=== PATIENT | female | born 1935 | race Caucasian/White ===

== ENCOUNTER 2017-05-31 13:21 | Inpatient (IN) | payer OTHER, MEDICARE ==
--- NOTE | 2017-05-31 13:43 | PDOC ---
History of Present Illness - General History Source: Patient Exam Limitations: No Limitations - History of Present Illness Initial Comments: 05/31/17 15:28 The patient is a 82 year old female, with a significant past medical history of CAD, HTN, HLD who presents to the emergency department with decreased heart rate (32 bpm) from PCP office. Patient states she visited her PCP due to increased generalized weakness and lightheadedness for the past few days. Patient visited her PCPs office due to these concerns and was sent in due to bradycardia after EKG. Upon evaluation, patient still ranging from 30-35 bpm. Patient also notes unusual dyspnea on exertion however denies chest pain. Patient denies any recent dose changes with her medications. Patient denies any recent travel or sick contacts. She denies headache or dizziness. She denies fever, chills, abdominal pain, nausea, vomit, diarrhea or constipation. She denies dysuria, frequency, urgency or hematuria. Allergies: Penicillins Past surgical history: Social history: None PCP: Dr. Sara Alonso <June Smith - Last Filed: 05/31/17 16:15> <Abelino León - Last Filed: 06/01/17 07:34> - General Chief Complaint: Irregular Heart Beat Stated Complaint: SLOW HEART RATE Time Seen by Provider: 05/31/17 13:37 Past History <June Smith - Last Filed: 05/31/17 16:15> - Past Medical History HTN: Yes Hypercholesterolemia: Yes - Psycho/Social/Smoking Cessation Hx Suicidal Ideation: No Smoking History: Never smoked <Abelino León - Last Filed: 06/01/17 07:34> - Past Medical History Allergies/Adverse Reactions: Allergies Allergy/AdvReac Type Severity Reaction Status Date / Time Penicillins Allergy Severe Hives Verified 05/31/17 17:10 Home Medications: Ambulatory Orders Aspirin [Ecotrin] 81 mg PO DAILY 05/31/17 Losartan Potassium 50 mg PO DAILY 05/31/17 Metoprolol Succinate [Toprol Xl -] 25 mg PO HS 05/31/17 Omeprazole 20 mg PO DAILY 05/31/17 Review of Systems - Review of Systems Able to Perform ROS?: Yes Comments:: 05/31/17 15:28 CONSTITUTIONAL: + Generalized Weakness, No reported: Fever, Chills, Diaphoresis, Malaise, Loss of Appetite HEENT: No reported: Rhinorrhea, Nasal Congestion, Throat Pain, Throat Swelling, Difficulty Swallowing, Mouth Swelling, Ear Pain, Eye Pain, Visual Changes CARDIOVASCULAR: No reported: Chest Pain, Syncope, Palpitations, Irregular Heart Rate, Lightheadedness, Peripheral Edema RESPIRATORY: No reported: Cough, Shortness of Breath, SOB with Exertion, Orthopnea, Wheezing , Stridor, Hemoptysis GASTROINTESTINAL: No reported: Abdominal pain, Abdominal Distension, Nausea, Vomiting, Diarrhea, Constipation, Melena, Hematochezia GENITOURINARY: No reported: Dysuria, Frequency, Urgency, Hesitancy, Flank Pain, Genital Pain MUSCULOSKELETAL: No reported: Myalgia, Arthralgia, Joint Swelling, Back pain, Neck Pain SKIN: No reported: Rash, Itching, Pallor HEMATOLOGIC/IMMUNOLOGIC: No reported: Easy Bleeding, Easy Bruising, Lymphadenopathy, Frequent infections ENDOCRINE: No reported: Unexplained Weight Gain, Unexplained Weight Loss, Heat Intolerance , Cold Intolerance NEUROLOGIC: No reported: Headache, Focal Weakness, Paresthesias, Vertigo, Lightheadedness, Unsteady Gait, Seizure, Mental Status Changes, Incontinence PSYCHIATRIC: No reported: Anxiety, Depression <June Smith - Last Filed: 05/31/17 16:15> *Physical Exam - Vital Signs Last Vital Signs Temp Pulse Resp BP Pulse Ox 98.1 F 35 L 20 184/61 99 05/31/17 13:35 05/31/17 13:35 05/31/17 13:35 05/31/17 13:35 05/31/17 13:35 - Physical Exam Comments: 05/31/17 15:28 GENERAL: The patient is awake, alert, and fully oriented, Nontoxic - in no acute distress. HEAD: Normocephalic, atraumatic. EYES: extraocular movements intact, sclera anicteric, conjunctiva clear. ENT: Normal voice, Moist mucous membranes. NECK: Normal range of motion, No JVD LUNGS: Breath sounds equal, clear to auscultation bilaterally. No wheezes, no rhonchi, no rales. HEART: + Bradycardia. Regular rhythm, normal S1 and S2 without murmur, rub or gallop. ABDOMEN: Soft, nontender, normoactive bowel sounds. No guarding, no rebound. No masses. No CVA tenderness EXTREMITIES: Normal range of motion, +LE edema w/o calf tendreness NEUROLOGICAL: No facial asymmetry, Normal speech, normal gait. PSYCH: Normal mood, normal affect. SKIN: Warm, Dry, normal turgor. <June Smith - Last Filed: 05/31/17 16:15> - Vital Signs Last Vital Signs Temp Pulse Resp BP Pulse Ox 98.1 F 35 L 20 184/61 99 05/31/17 13:35 05/31/17 13:35 05/31/17 13:35 05/31/17 13:35 05/31/17 13:35 <Abelino León - Last Filed: 06/01/17 07:34> Heart Score/ECG Review - ECG Impressions Comment:: 05/31/17 14:46 Twelve-lead EKG was performed and reviewed by me. rate of 36 second degree AV block mobitz type II <Abelino León - Last Filed: 06/01/17 07:34> ED Treatment Course - LABORATORY CBC & Chemistry Diagram: 05/31/17 14:02 05/31/17 14:02 - ADDITIONAL ORDERS Additional order review: Laboratory Results 05/31/17 05/31/17 14:02 14:02 INR 1.09 Sodium 140 Potassium 4.8 Chloride 108 H Carbon Dioxide 27 Anion Gap 5 L BUN 21 H Creatinine 1.0 Creat Clearance w eGFR 52.82 Random Glucose 83 Calcium 8.6 Magnesium 2.3 Total Bilirubin 0.3 AST 37 ALT 58 Alkaline Phosphatase 82 Creatine Kinase 74 Troponin I < 0.02 Total Protein 6.9 Albumin 3.6 TSH 1.53 05/31/17 14:02 RBC 4.03 MCV 91.8 MCHC 33.2 RDW 14.5 MPV 9.2 Neutrophils % 60.6 Lymphocytes % 26.6 Monocytes % 9.7 Eosinophils % 2.2 Basophils % 0.9 <June Smith - Last Filed: 05/31/17 16:15> - LABORATORY CBC & Chemistry Diagram: 05/31/17 14:02 05/31/17 14:02 <Abelino León - Last Filed: 06/01/17 07:34> Medical Decision Making - Medical Decision Making 05/31/17 15:26 Dr. Geno Millan paged via phone answering service. Awaiting call back. 05/31/17 15:[address] Leyva overhead Patient's case was discussed. 05/31/17 15:30 Dr. Gonzalez responded and the patient's case was discussed. <June Smith - Last Filed: 05/31/17 16:15> - Medical Decision Making 05/31/17 14:18 82y F hx of htn, hl, sent by PMD for evaluation of bradycardia. pt complaing of weakness w/o any other complaints no recent dosage changes or new meds pt appears well in no distress vitasl noted for extreme bradycardia, but BP is hypertensive pt on pacer pads and monitor atropine bedside will ck cbc, trops, lytes will dw PMD and cardiology A portion of this note was documented by scribe services under my direction. I have reviewed the details of the note, within reason, and agree with the documentation with the following case summary and management plan written by me CRITICAL CARE DOCUMENTATION: I spent ~35 minutes of Critical Care time, excluding separately billable procedures, involving high complexity decision making to assess, manipulate and support vital system function(s) to treat single or multiple vital organ system failure and/or to prevent further life threatening deterioration of the patient' s condition. 05/31/17 15:25 labs reviewed unremarakble will dw dr. zachariah millan and dr. goddard regarding admission for further mangement 05/31/17 15:[address] goddard requests holding toprol tele obervation for monitoring case dw. dr. alonso, requests admission under hospitalist service. Case discussed in detail with admitting physician including history, physical exam and ancillary studies. Admitting physician has assumed care for the patient, will follow all pending diagnostics and will complete the evaluation and treatment. <Abelino León - Last Filed: 06/01/17 07:34> *DC/Admit/Observation/Transfer - Attestations Scribe Attestion: 05/31/17 15:28 Documentation prepared by June Smith, acting as manager medical writing for Abelino León MD <June Smith - Last Filed: 05/31/17 16:15> - Discharge Dispostion Admit: Yes <Abelino León - Last Filed: 06/01/17 07:34> Diagnosis at time of Disposition: AV block, Mobitz 2 - Discharge Dispostion Condition at time of disposition: Stable - Referrals
[2017-05-31] MEDS ORDERED: ATROPINE SO4 0.4 MG/1 ML VIAL IVPUSH ONE (13:47)
[2017-05-31 14:14] LABS: BASOPHIL 0.9 % (0-2.0); EOSINOPHIL 2.2 % (0-4.5); MCH 30.5 pg (25.7-33.7); MCHC 33.2 g/dl (32.0-36.0); MEAN CELL VOLUME 91.8 fl (80-96); MEAN PLT VOLUME 9.2 fl (7.5-11.1); NEUTROPHILS 60.6 % (42.8-82.8); PLATELET COUNT 209 K/MM3 (134-434); RDW 14.5 % (11.6-15.6); WHITE BLOOD COUNT 10.5 K/mm3 (4.0-10.0)
[2017-05-31] MEDS ORDERED: ATROPINE SULFATE 1 MG/10 ML DISP.SYRIN ONE (14:15)
[2017-05-31 14:51] LABS: INR 1.09 (0.82-1.09)
[2017-05-31 14:56] LABS: ALBUMIN 3.6 g/dl (3.4-5.0); ANION GAP 5 (8-16); BILIRUBIN,TOTAL 0.3 mg/dL (0.2-1.0); CALCIUM 8.6 mg/dL (8.5-10.1); CO2 27 mmol/L (21-32); CPK 74 IU/L (26-192); GLUCOSE,RANDOM 83 mg/dL (74-106); MAGNESIUM 2.3 mg/dL (1.8-2.4); SGOT/AST 37 U/L (15-37); SGPT/ALT 58 U/L (12-78); TOT PROT 6.9 g/dl (6.4-8.2)
[2017-05-31 15:04] LABS: ALK PHOS 82 U/L (45-117); THYROID STIMULATING HORMONE 1.53 uIU/ml (0.358-3.74); TROPONIN I < 0.02 ng/ml (0.00-0.05)
--- NOTE | 2017-05-31 15:48 | CON.CARD ---
Consult Consult Specialty:: Cardiology Referred by:: Sherita Gonzalez MD Reason for Consultation:: Symptomatic bradycardia - History of Present Illness Chief Complaint: Weakness, fatigue, dyspnea on exertion History of Present Illness: The patient is a 82 year old female, with a significant past medical history of CAD, HTN, HLD who presents to the emergency department with symptomatic bradycarda (32 bpm) from PCP office. Patient states she visited her PCP for increased generalized weakness, fatigue, exercise intolerance and lightheadedness for the past few days. Patient also notes dyspnea on exertion; however, denies chest pain, true syncope, palpitations, orthopnea, PND or LE edema. Patient denies any recent dose changes with her medications. Allergies: Penicillins Past surgical history: Social history: None PCP: Dr. Sara Alonso - History Source History Provided By: Patient Limitations to Obtaining History: No Limitations - Smoking History Smoking history: Never smoked Home Medications - Allergies Allergies/Adverse Reactions: Allergies Allergy/AdvReac Type Severity Reaction Status Date / Time Penicillins Allergy Severe Hives Verified 05/31/17 17:10 - Home Medications Home Medications: Ambulatory Orders Aspirin [Ecotrin] 81 mg PO DAILY 05/31/17 Losartan Potassium 50 mg PO DAILY 05/31/17 Metoprolol Succinate [Toprol Xl -] 25 mg PO HS 05/31/17 Omeprazole 20 mg PO DAILY 05/31/17 Review of Systems - Review of Systems Constitutional: reports: Weakness Neurological: reports: Dizziness Vital Signs: Vital Signs Temperature 98.1 F 05/31/17 13:35 Pulse Rate 36 L 05/31/17 15:15 Respiratory Rate 20 05/31/17 15:15 Blood Pressure 130/85 05/31/17 15:15 O2 Sat by Pulse Oximetry (%) 99 05/31/17 15:15 Constitutional: Yes: No Distress, Calm Neck: Yes: Supple Respiratory: Yes: Regular, CTA Bilaterally Gastrointestinal: Yes: Normal Bowel Sounds, Soft Cardiovascular: Yes: Bradycardia JVD: No Carotid Bruit: No Heart Sounds: Yes: S1, S2 Murmur: Yes: Systolic Murmur, Grade 1 Edema: No - Other Data Labs, Other Data: CBC, BMP 05/31/17 14:02 05/31/17 14:02 INR, PTT INR 1.09 (0.82-1.09) 05/31/17 14:02 Troponin, BNP 05/31/17 14:02 Troponin I < 0.02 Troponin, BNP 05/31/17 14:02 Troponin I < 0.02 Advanced 2nd deg AVB Ejection Fraction %: LVEF > or = 40 % Imaging - Results Chest X-ray: Report Reviewed (NAD) Problem List - Problems (1) Symptomatic bradycardia Code(s): R00.1 - BRADYCARDIA, UNSPECIFIED (2) Hyperlipidemia Code(s): E78.5 - HYPERLIPIDEMIA, UNSPECIFIED Qualifiers: Hyperlipidemia type: pure hypercholesterolemia Qualified Code(s): E78.00 - Pure hypercholesterolemia, unspecified; E78.0 - Pure hypercholesterolemia (3) Hypertensive cardiomyopathy Code(s): I11.9 - HYPERTENSIVE HEART DISEASE WITHOUT HEART FAILURE I43 - CARDIOMYOPATHY IN DISEASES CLASSIFIED ELSEWHERE Qualifiers: Heart failure presence: without heart failure Qualified Code(s): I11.9 - Hypertensive heart disease without heart failure; I43 - Cardiomyopathy in diseases classified elsewhere (4) Atherosclerotic heart disease Code(s): I25.10 - ATHSCL HEART DISEASE OF [place] CORONARY ARTERY W/O ANG PCTRS Qualifiers: Coronary Disease-Associated Artery/Lesion type: nikolai artery [place] vs. transplanted heart: nikolai heart Associated angina: without angina Qualified Code(s): I25.10 - Atherosclerotic heart disease of [place] coronary artery without angina pectoris (5) AV block, Mobitz 2 Code(s): I44.1 - ATRIOVENTRICULAR BLOCK, SECOND DEGREE Assessment/Plan Persantine Myoview: 04/01/2015 No ischemia, LVEF 81% Echocardiogram: 03/29/2015 Normal LV size and fxn, MAC, mild MR, TR, AR and NE 1. Symptomatic bradycardia referable to progressive sick sinus syndrome on metoprolol 2. ASHD w/o ischemic on recent MPI 3. HTN/HCVD 4. Hyperlipidemia 5. Alternating RBBB 6. History of lumbar radiculopathy P:1. Overnight telemetry observation off metoprolol to excluded significant pauses 2. Continue ASA 81 qd, losartan 50 qd, Lipitor 10 qhs, add Norvasc 2.5 qd with uptitration as tolerated 3. Further recommendations to follow pending clinical reassessment 4. Thank you for consultative opportunity
[2017-05-31] MEDS ORDERED: amLODIPine BESYLATE 5 MG TABLET (FP) ONE (17:14)
[2017-05-31] MEDS ORDERED: LOSARTAN POTASSIUM 25 MG TABLET ONE (17:14)
[2017-05-31] MEDS: LOSARTAN POTASSIUM 50 MG TABLET (FP) PO SCH (17:26)
[2017-05-31] MEDS: amLODIPine BESYLATE 2.5 MG TABLET (FP) PO SCH (17:26)
--- NOTE | 2017-05-31 17:44 | EKG ---
Test Reason : Blood Pressure : / mmHG Vent. Rate : 036 BPM Atrial Rate : 064 BPM P-R Int : 182 ms QRS Dur : 096 ms QT Int : 492 ms P-R-T Axes : 012 -08 037 degrees QTc Int : 380 ms SINUS RHYTHM WITH 2ND DEGREE A-V BLOCK (MOBITZ II) 2:1 AV BLOCK CANNOT RULE OUT SEPTAL INFARCT , AGE UNDETERMINED ABNORMAL ECG WHEN COMPARED WITH ECG OF 04-JUL-2009 17:15, SINUS RHYTHM IS NOW WITH 2ND DEGREE A-V BLOCK (MOBITZ II) VENT. RATE HAS DECREASED BY 29 BPM Confirmed by MUNA LEAL MD ([id number]) on 05/31/2017 5:44:35 PM Referred By: Confirmed By:MUNA LEAL MD
--- NOTE | 2017-05-31 17:47 | HP ---
CHIEF COMPLAINT: increased weakness, fatigue, exercise intolerance and lightheadedness. Sent by PCP Dr. Gavin Arango for symptomatic bradycardia after office EKG revealed pt heart rate in the 30s. PCP: Dr. Gavin Arango HISTORY OF PRESENT ILLNESS: Patient is an 82 year old female with a significant past medical history of CAD , hypertension and hyperlipidemia. She presented to the ED today from her PCP' s office with symptomatic bradycardia (heart rate 32 bpm). Patient went to see her PCP for worsening generalized weakness, fatigue, exercise intolerance and lightheadedness for approximately 2-3 days. Patient also reported dyspnea on exertion. She denies chest pain, syncope, heart palpitations or any other discomfort. She denies fever or chills. ER course was notable for: (1) EKG SR with second degree AV block 2:1 block, cannot rule out septal infarct , heart rate 33 (2) Chest Xray no acute intrathoracic abnormality seen (3) Troponins negative x 1 Recent Travel: PAST MEDICAL HISTORY: PAST SURGICAL HISTORY: Social History: Smoking: denies Alcohol: denies Drugs: denies Family History: Allergies Penicillins Allergy (Severe, Verified 05/31/17 17:10) Hives HOME MEDICATIONS: Home Medications Medication Instructions Recorded Aspirin [Ecotrin] 81 mg PO DAILY 05/31/17 Losartan Potassium 50 mg PO DAILY 05/31/17 Metoprolol Succinate [Toprol Xl -] 25 mg PO HS 05/31/17 Omeprazole 20 mg PO DAILY 05/31/17 REVIEW OF SYSTEMS CONSTITUTIONAL: Absent: fever, chills, diaphoresis, generalized weakness, malaise, loss of appetite, weight change HEENT: Absent: rhinorrhea, nasal congestion, throat pain, throat swelling, difficulty swallowing, mouth swelling, ear pain, eye pain, visual changes CARDIOVASCULAR: Absent: chest pain, syncope, palpitations RESPIRATORY: Absent: cough, orthopnea, wheezing, stridor, hemoptysis GASTROINTESTINAL: Absent: abdominal pain, abdominal distension, nausea, vomiting, diarrhea, constipation, melena, hematochezia GENITOURINARY: Absent: dysuria, frequency, urgency, hesitancy, hematuria, flank pain, genital pain MUSCULOSKELETAL: Absent: myalgia, arthralgia, joint swelling, back pain, neck pain SKIN: Absent: rash, itching, pallor HEMATOLOGIC/IMMUNOLOGIC: Absent: easy bleeding, easy bruising, lymphadenopathy, frequent infections ENDOCRINE: Absent: unexplained weight gain, unexplained weight loss, heat intolerance, cold intolerance NEUROLOGIC: Absent: headache, focal weakness or paresthesias, dizziness, unsteady gait, seizure, mental status changes, bladder or bowel incontinence PSYCHIATRIC: Absent: anxiety, depression, suicidal or homicidal ideation, hallucinations. PHYSICAL EXAMINATION Vital Signs - 24 hr 05/31/17 16:25 Pulse Rate [ 51 L Left Radial] Respiratory 20 Rate Blood Pressure 160/87 [Left Arm] O2 Sat by Pulse 99 Oximetry (%) GENERAL: Awake, alert, and fully oriented, in no acute distress. HEAD: no signs of trauma + left eye redness on home dose of Travatan z 0004% whichis NF here, pt to bring eye drops from home EYES: Pupils equal, round and reactive to light, extraocular movements intact, sclera anicteric, conjunctiva clear. No lid lag. EARS, NOSE, THROAT: Ears normal, nares patent, oropharynx clear without exudates. Moist mucous membranes. NECK: Normal range of motion, supple without lymphadenopathy, JVD, or masses. LUNGS: Breath sounds equal, clear to auscultation bilaterally. No wheezes, and no crackles. No accessory muscle use. HEART: Irregular heart rate between 30s-40s on cardiac cath lab manager ABDOMEN: Soft, nontender, not distended, normoactive bowel sounds, no guarding, no rebound, no masses. No hepatomegaly or splenomegaly. MUSCULOSKELETAL: Normal range of motion at all joints. No bony deformities or tenderness. No CVA tenderness. UPPER EXTREMITIES: 2+ pulses, warm, well-perfused. No cyanosis. No clubbing. No peripheral edema. LOWER EXTREMITIES: bilateral +2 ankle edema NEUROLOGICAL: Normal speech. dizziness with ambulation, needs standby assistance with ADLs, + symptomatic bradycardia PSYCHIATRIC: Cooperative. Good eye contact. Appropriate mood and affect. SKIN: Warm, dry, normal turgor, no rashes or lesions noted, normal capillary refill. ASSESSMENT/PLAN: Patient is an 82 year old female with a significant past medical history of CAD , hypertension and hyperlipidemia. She presented to the ED today from her PCP' s office with symptomatic bradycardia (heart rate 32 bpm). Patient went to see her PCP for worsening generalized weakness, fatigue, exercise intolerance and lightheadedness for approximately 2-3 days. Patient also reported dyspnea on exertion. She denies chest pain, syncope, heart palpitations or any other discomfort. She denies fever or chills. Cardiology: Symptomatic Bradycardia - acute EKG SR with second degree AV block 2:1 block, cannot rule out septal infarct, heart rate 33 No chest pain on exam, no jaw pain, will trend trops Metrpolol on hold to exclude significant pauses as per cardiology Monitor overnight on telemonitoring On ASA 81mg, Lipitor 10 at HS and Amlodopine 2.5 daily, Losartan daily Hypertension: On Amlodopine 2.5 daily, Losartan daily, hold metoprolol home dose Monitor BP and uptitrate Amlodopine if remains elevated Hyperlipidemia: Lipid panel in a.m. On home dose of Lipitor 10mg @hs Will order UC and BC to rule out infection. F.E.N. Fluids: No IVF, continue PO Electrolytes: panel within normal limits, repeat in a.m. Nutrition: low sodium diet Prophylaxis: DVT: SCDs GI: deferred Disposition: Monitor on tele unit. Full Code. Visit type - Emergency Visit Emergency Visit: Yes ED Registration Date: 05/31/17 Care time: The patient presented to the Emergency Department on the above date and was hospitalized for further evaluation of their emergent condition. - New Patient This patient is new to me today: Yes Date on this admission: 06/10/17 - Critical Care Critical Care patient: No
[2017-05-31 18:04] VITALS: BMI 13.0
[2017-05-31] MEDS: ATORVASTATIN CA 10 MG TABLET (FP) PO SCH (21:27)
[2017-06-01 00:48] LABS: URINE APPEARANCE CLEAR; URINE BILIRUBIN NEGATIVE (NEGATIVE); URINE BLOOD NEGATIVE (NEGATIVE); URINE COLOR LTYELLOW; URINE GLUCOSE (UA) NEGATIVE (NEGATIVE); URINE KETONE NEGATIVE (NEGATIVE); URINE NITRITE NEGATIVE (NEGATIVE); URINE PROTEIN NEGATIVE (NEGATIVE); URINE UROBILINOGEN NEGATIVE mg/dL (0.2-1.0)
[2017-06-01 00:51] LABS: URINE LEUK ESTERASE 2+ (NEGATIVE)
[2017-06-01 00:52] LABS: URINE MUCUS RARE; URINE RBC 1 /hpf (0-3); URINE WBC 20 /hpf (3-5)
[2017-06-01 07:37] LABS: EOSINOPHIL 4.1 % (0-4.5); MCH 30.2 pg (25.7-33.7); MCHC 33.2 g/dl (32.0-36.0); MEAN CELL VOLUME 90.9 fl (80-96); MEAN PLT VOLUME 9.9 fl (7.5-11.1); NEUTROPHILS 54.7 % (42.8-82.8); PLATELET COUNT 179 K/MM3 (134-434); WHITE BLOOD COUNT 9.1 K/mm3 (4.0-10.0)
[2017-06-01 07:56] LABS: ANION GAP 7 (8-16); CO2 25 mmol/L (21-32); CREATININE 0.9 mg/dL (0.55-1.02); MAGNESIUM 2.1 mg/dL (1.8-2.4); SGOT/AST 25 U/L (15-37); SGPT/ALT 42 U/L (12-78)
[2017-06-01 08:04] LABS: ALK PHOS 67 U/L (45-117); BILIRUBIN,TOTAL 0.4 mg/dL (0.2-1.0); CALCIUM 8.4 mg/dL (8.5-10.1); CHOLESTEROL 150 mg/dL (50-200); GLUCOSE,RANDOM 92 mg/dL (74-106); LDL CHOLESTEROL (ONLY SJRH) 85 mg/dL (5-100); TOT PROT 5.7 g/dl (6.4-8.2)
[2017-06-01] MEDS: amLODIPine BESYLATE 2.5 MG TABLET (FP) PO SCH (10:36)
[2017-06-01] MEDS: ASPIRIN 81 MG CHEWABLE TABLETS PO SCH (10:36)
[2017-06-01] MEDS: LOSARTAN POTASSIUM 50 MG TABLET (FP) PO SCH (10:36)
--- NOTE | 2017-06-01 11:39 | PN ---
Physical Exam: SUBJECTIVE: Patient seen and examined at bedside. Feels fatigued, no energy. Needs to nap during the day. OBJECTIVE: Vital Signs Period Temp Pulse Resp BP Sys/Beltre Pulse Ox Last 24 Hr 97.5 F-98.6 F 36-79 18-18 116-157/50-69 95 GENERAL: The patient is awake, alert, and fully oriented, in no acute distress. HEAD: Normal with no signs of trauma. EYES: PERRL, extraocular movements intact, sclera anicteric, conjunctiva clear. No ptosis. LUNGS: Breath sounds equal, clear to auscultation bilaterally, no wheezes, no crackles, no accessory muscle use. HEART: Regular rate and rhythm, slow; S1, S2 ABDOMEN: Soft, nontender, nondistended, normoactive bowel sounds, no guarding, no rebound EXTREMITIES: 2+ pulses, warm, well-perfused, no edema. NEUROLOGICAL: Cranial nerves II through XII grossly intact. Normal speech, gait not observed. Laboratory Results - last 24 hr 05/31/17 06/01/17 06/01/17 19:20 00:01 01:15 WBC RBC Hgb Hct MCV MCH MCHC RDW Plt Count MPV Neutrophils % Lymphocytes % Monocytes % Eosinophils % Basophils % Sodium Potassium Chloride Carbon Dioxide Anion Gap BUN Creatinine Creat Clearance w eGFR Random Glucose Calcium Magnesium Total Bilirubin AST ALT Alkaline Phosphatase Troponin I < 0.02 < 0.02 Total Protein Albumin Triglycerides Cholesterol Total LDL Cholesterol HDL Cholesterol Urine Color Ltyellow Urine Appearance Clear Urine pH 5.0 Ur Specific [place] 1.015 Urine Protein Negative Urine Glucose (UA) Negative Urine Ketones Negative Urine Blood Negative Urine Nitrite Negative Urine Bilirubin Negative Urine Urobilinogen Negative Ur Leukocyte Esterase 2+ H Urine RBC 1 Urine WBC 20 Ur Epithelial Cells Rare Urine Mucus Rare 06/01/17 06/01/17 05:35 05:35 WBC 9.1 RBC 3.78 Hgb 11.4 Hct 34.3 MCV 90.9 MCH 30.2 MCHC 33.2 RDW 14.0 Plt Count 179 MPV 9.9 Neutrophils % 54.7 Lymphocytes % 28.2 Monocytes % 12.0 H Eosinophils % 4.1 D Basophils % 1.0 Sodium 141 Potassium 4.4 Chloride 109 H Carbon Dioxide 25 Anion Gap 7 L BUN 23 H Creatinine 0.9 Creat Clearance w eGFR 59.65 Random Glucose 92 Calcium 8.4 L Magnesium 2.1 Total Bilirubin 0.4 D AST 25 D ALT 42 D Alkaline Phosphatase 67 Troponin I Total Protein 5.7 L Albumin 3.0 L Triglycerides 85 Cholesterol 150 Total LDL Cholesterol 85 HDL Cholesterol 49 Urine Color Urine Appearance Urine pH Ur Specific [place] Urine Protein Urine Glucose (UA) Urine Ketones Urine Blood Urine Nitrite Urine Bilirubin Urine Urobilinogen Ur Leukocyte Esterase Urine RBC Urine WBC Ur Epithelial Cells Urine Mucus Active Medications Generic Name Dose Route Start Last Admin Trade Name Heavenly PRN Reason Stop Dose Admin Amlodipine Besylate 2.5 mg 05/31/17 17:00 06/01/17 10:36 Norvasc - PO 2.5 mg DAILY MANI Administration Aspirin 81 mg 06/01/17 10:00 06/01/17 10:36 Asa - PO 81 mg DAILY MANI Administration Atorvastatin Calcium 10 mg 05/31/17 22:00 05/31/17 21:27 Lipitor - PO 10 mg HS MANI Administration Losartan Potassium 50 mg 05/31/17 17:00 06/01/17 10:36 Cozaar - PO 50 mg DAILY MANI Administration ASSESSMENT/PLAN 82 year-old female with a PMH significant for HTN, HLD, and CAD, admitted for symptomatic bradycardia. Symptomatic bradycardia --per cardiology, likely secondary to progressive sick sinus syndrome while also on metoprolol --ECG 2:1 AV block, rate 30s --hold metoprolol --check Lyme titer --may need PPM if remains in advance block persists 24 to 48 hours after metoprolol stopped --will get EPS consult Hypertension --continue losartan, amlodipine Hyperlipidemia --continue atorvastatin Coronary artery disease --continue ASA, statin; hold metoprolol F/E/N Fluids: PO intake adequate Electrolytes: replete as indicated Nutrition: sodium controlled DVT prophylaxis: SCDs, oob, ambulation Dispo: continues to require inpatient care. Full Code. Visit type - Emergency Visit Emergency Visit: Yes ED Registration Date: 05/31/17 Care time: The patient presented to the Emergency Department on the above date and was hospitalized for further evaluation of their emergent condition. - New Patient This patient is new to me today: Yes Date on this admission: 06/02/17 - Critical Care Critical Care patient: No
--- NOTE | 2017-06-01 12:08 | EKG ---
Test Reason : Blood Pressure : / mmHG Vent. Rate : 040 BPM Atrial Rate : 071 BPM P-R Int : 186 ms QRS Dur : 126 ms QT Int : 470 ms P-R-T Axes : 071 -03 030 degrees QTc Int : 383 ms SINUS RHYTHM WITH 2ND DEGREE A-V BLOCK (MOBITZ II) WITH 2:1 A-V CONDUCTION RIGHT BUNDLE BRANCH BLOCK SEPTAL INFARCT (CITED ON OR BEFORE 31-MAY-2017) ABNORMAL ECG WHEN COMPARED WITH ECG OF 31-MAY-2017 13:36, RIGHT BUNDLE BRANCH BLOCK IS NOW PRESENT CORRELATE CLINICALLY AND RPEAT ASINDICATED NURSE NOTIFIED Confirmed by FLETCHER LEYVA MD ([id number] on 06/01/2017 12:08:25 PM Referred By: Carmita GUERRERO Confirmed By:FLETCHER LEYVA MD
--- NOTE | 2017-06-01 12:31 | PN ---
Progress Note, Physician Chief Complaint: Events noted Not in distress History of Present Illness: Patient was seen and examined. Awake and alert. Chart was reviewed Denies chest pain, shortness of breath or palpitation this am Denies dizziness. Complains of intermittent weakness - Current Medication List Current Medications: Active Medications Amlodipine Besylate (Norvasc -) 2.5 mg PO DAILY [facility] Last Admin: 06/01/17 10:36 Dose: 2.5 mg Aspirin (Asa -) 81 mg PO DAILY [facility] Last Admin: 06/01/17 10:36 Dose: 81 mg Atorvastatin Calcium (Lipitor -) 10 mg PO HS [facility] Last Admin: 05/31/17 21:27 Dose: 10 mg Losartan Potassium (Cozaar -) 50 mg PO DAILY [facility] Last Admin: 06/01/17 10:36 Dose: 50 mg - Objective Vital Signs: Vital Signs Temperature 97.9 F 06/01/17 10:37 Pulse Rate 79 06/01/17 10:37 Respiratory Rate 18 06/01/17 10:37 Blood Pressure 157/69 06/01/17 10:37 O2 Sat by Pulse Oximetry (%) 95 05/31/17 21:00 Neck: Yes: Supple Cardiovascular: Yes: Regular Rate and Rhythm, Bradycardia, S1, S2 Respiratory: Yes: CTA Bilaterally Gastrointestinal: Yes: Normal Bowel Sounds, Soft. No: Tenderness Edema: No Additional Findings/Remarks: - Review of Systems Constitutional: denies: Chills, Fever Cardiovascular: denies: Chest Pain. denies: Palpitations, Shortness of Breath Respiratory: denies: Cough, Hemoptysis, Orthopnea, PND, SOB, SOB on Exertion Gastrointestinal: denies: Nausea, Vomiting. denies: Abdominal Pain, Constipation, Diarrhea, Melena, Rectal Bleeding Neurological: denies: Dizziness, Headache, Seizure, Syncope Labs: CBC, BMP 06/01/17 05:35 06/01/17 05:35 INR, PTT INR 1.09 (0.82-1.09) 05/31/17 14:02 Problem List - Problems (1) AV block, Mobitz 2 Code(s): I44.1 - ATRIOVENTRICULAR BLOCK, SECOND DEGREE (2) Atherosclerotic heart disease Code(s): I25.10 - ATHSCL HEART DISEASE OF [place] CORONARY ARTERY W/O ANG PCTRS Qualifiers: Coronary Disease-Associated Artery/Lesion type: [place] artery [place] vs. transplanted heart: [place] heart Associated angina: without angina Qualified Code(s): I25.10 - Atherosclerotic heart disease of [place] coronary artery without angina pectoris (3) Hyperlipidemia Code(s): E78.5 - HYPERLIPIDEMIA, UNSPECIFIED Qualifiers: Hyperlipidemia type: pure hypercholesterolemia Qualified Code(s): E78.00 - Pure hypercholesterolemia, unspecified; E78.0 - Pure hypercholesterolemia (4) Hypertensive cardiomyopathy Code(s): I11.9 - HYPERTENSIVE HEART DISEASE WITHOUT HEART FAILURE I43 - CARDIOMYOPATHY IN DISEASES CLASSIFIED ELSEWHERE Qualifiers: Heart failure presence: without heart failure Qualified Code(s): I11.9 - Hypertensive heart disease without heart failure; I43 - Cardiomyopathy in diseases classified elsewhere (5) Symptomatic bradycardia Code(s): R00.1 - BRADYCARDIA, UNSPECIFIED Assessment/Plan 1. Symptomatic bradycardia referable to progressive sick sinus syndrome vs AV melcohr disease - secondary AV block mobitz 2 - 2:1 block 2. ASHD 3. HTN/HCVD 4. Hyperlipidemia 5. Intermittent RBBB 6. History of lumbar radiculopathy PLAN: 1. Currently off Metoprolol - still with 2:1 AV block 2. Continue ASA 81 qd, Losartan 50 qd, Lipitor 10 qhs and Norvasc 2.5 qd with uptitration as tolerated 3. Consider Echocardiography to assess LV/RV and valvular function 4. Check Lyme titre (she states that she has a garden behind her house where she walked) 5. Consider permanent pacemaker in view of advanced AV block if she still remains in 2:1 or advance block after Metoprolol has been stopped for greater than 24 to 48 hours Further plans are to follow Ceasar Cornejo MD
[2017-06-01] MEDS: ATORVASTATIN CA 10 MG TABLET (FP) PO SCH (22:26)
--- NOTE | 2017-06-02 07:13 | CON.CARD ---
Consult Consult Specialty:: EPS Referred by:: Dr. Ceasar Cornejo Reason for Consultation:: Mobitz II Heart block - History of Present Illness Chief Complaint: Heart Block History of Present Illness: Ms. Huston is a pleasant 82 year old female with a pmh of cad, htn, inc chol who presented with bradycardia, 2-1 heart block, sent by her pmd's office. The patient had reportedly had symptoms of weakness, fatigue, dyspnea and lightheadedness for a few days. She has been monitored on telemetry where 2-1 heart block persists despite being off of av melchor blocking therapy. Lyme titer was sent but results are pending. She does describe being outdoors. At this time, the patient denies any symptoms and states that she feels well. She denies any chest pain, palpitations or true syncope. Echo has demonstrated normal LV systolic function. Cardiac enzymes have been negative. - History Source History Provided By: Patient Limitations to Obtaining History: No Limitations - Past Medical History Cardio/Vascular: Yes: CAD, HTN, Hyperlipdemia - Smoking History Smoking history: Never smoked Home Medications - Allergies Allergies/Adverse Reactions: Allergies Allergy/AdvReac Type Severity Reaction Status Date / Time Penicillins Allergy Severe Hives Verified 05/31/17 17:10 - Home Medications Home Medications: Ambulatory Orders Aspirin [Ecotrin] 81 mg PO DAILY 05/31/17 Losartan Potassium 50 mg PO DAILY 05/31/17 Metoprolol Succinate [Toprol Xl -] 25 mg PO HS 05/31/17 Omeprazole 20 mg PO DAILY 05/31/17 Family Disease History - Family Disease History Family History: Unremarkable Review of Systems - Review of Systems Constitutional: reports: No Symptoms HENT: reports: No Symptoms Neck: reports: No Symptoms Cardiovascular: reports: Shortness of Breath Respiratory: reports: SOB on Exertion Gastrointestinal: reports: No Symptoms Genitourinary: reports: No Symptoms Integumentary: reports: No Symptoms Neurological: reports: No Symptoms Hematology/Lymphatic: reports: No Symptoms Psychiatric: reports: No Symptoms - Risk Factors Known Risk Factors: Yes: Hypercholesterolemia, Hypertension Vital Signs: Vital Signs Temperature 98.6 F 06/02/17 05:12 Pulse Rate 38 L 06/02/17 05:12 Respiratory Rate 16 06/02/17 05:12 Blood Pressure 112/60 06/02/17 05:12 O2 Sat by Pulse Oximetry (%) 98 06/01/17 21:00 Constitutional: Yes: Well Nourished HENT: Yes: WNL Neck: Yes: WNL Respiratory: Yes: WNL, Regular, CTA Bilaterally Gastrointestinal: Yes: WNL, Normal Bowel Sounds, Soft Cardiovascular: Yes: Bradycardia JVD: No PMI: Non-Displaced Heart Sounds: Yes: S1, S2 Murmur: Yes: Systolic Murmur, Grade 2 Extremities: Yes: WNL Edema: No Peripheral Pulses WNL: Yes Neurological: Yes: WNL, Alert, Oriented ...Motor Strength: WNL - Other Data Labs, Other Data: CBC, BMP 06/01/17 05:35 06/01/17 05:35 INR, PTT INR 1.09 (0.82-1.09) 05/31/17 14:02 Echo: Report Reviewed Ejection Fraction %: LVEF > or = 40 % Imaging - Results EKG: Image Reviewed Assessment/Plan 06/02/17: JVD EPS: mobitz II heart block with narrow complex 2-1 conduction. asymptomatic. maintaining blood pressure. lyme disease testing pending. off av melchor blocking agents now for about 36 hours. echo normal lv systolic function. - monitor off av melchor blocking agents for 48 hours - f/u lyme titers - keep k 4-4.5, mg 2-2.5 - if remains with heart block despite above, plan for ppm (will tentatively schedule for tomorrow morning pending OR availability) - care as per cardiology Thank you for allowing me to participate in the care of this patient. Please call with any questions. Nicholas Lucas MD [phone]
[2017-06-02] MEDS: LOSARTAN POTASSIUM 50 MG TABLET (FP) PO SCH (10:09)
[2017-06-02] MEDS: ASPIRIN 81 MG CHEWABLE TABLETS PO SCH (10:09)
[2017-06-02] MEDS: amLODIPine BESYLATE 5 MG TABLET (FP) PO SCH (10:09)
--- NOTE | 2017-06-02 10:22 | PN ---
Progress Note, Physician History of Present Illness: Feels weak, HR in 40's. - Current Medication List Current Medications: Active Medications Amlodipine Besylate (Norvasc -) 5 mg PO DAILY [facility] Last Admin: 06/02/17 10:09 Dose: 5 mg Aspirin (Asa -) 81 mg PO DAILY [facility] Last Admin: 06/02/17 10:09 Dose: 81 mg Atorvastatin Calcium (Lipitor -) 10 mg PO HS [facility] Last Admin: 06/01/17 22:26 Dose: 10 mg Losartan Potassium (Cozaar -) 50 mg PO DAILY [facility] Last Admin: 06/02/17 10:09 Dose: 50 mg - Objective Vital Signs: Vital Signs Temperature 98.2 F 06/02/17 10:03 Pulse Rate 43 L 06/02/17 10:03 Respiratory Rate 18 06/02/17 10:03 Blood Pressure 130/53 06/02/17 10:03 O2 Sat by Pulse Oximetry (%) 98 06/01/17 21:00 Constitutional: Yes: No Distress, Calm Neck: Yes: Supple Cardiovascular: Yes: Bradycardia Respiratory: Yes: Regular, CTA Bilaterally Gastrointestinal: Yes: Normal Bowel Sounds, Soft Edema: No Labs: CBC, BMP 06/01/17 05:35 06/01/17 05:35 INR, PTT INR 1.09 (0.82-1.09) 05/31/17 14:02 Problem List - Problems (1) Symptomatic bradycardia Code(s): R00.1 - BRADYCARDIA, UNSPECIFIED (2) Hyperlipidemia Code(s): E78.5 - HYPERLIPIDEMIA, UNSPECIFIED Qualifiers: Hyperlipidemia type: pure hypercholesterolemia Qualified Code(s): E78.00 - Pure hypercholesterolemia, unspecified; E78.0 - Pure hypercholesterolemia (3) Hypertensive cardiomyopathy Code(s): I11.9 - HYPERTENSIVE HEART DISEASE WITHOUT HEART FAILURE I43 - CARDIOMYOPATHY IN DISEASES CLASSIFIED ELSEWHERE Qualifiers: Heart failure presence: without heart failure Qualified Code(s): I11.9 - Hypertensive heart disease without heart failure; I43 - Cardiomyopathy in diseases classified elsewhere (4) Atherosclerotic heart disease Code(s): I25.10 - ATHSCL HEART DISEASE OF [place] CORONARY ARTERY W/O ANG PCTRS Qualifiers: Coronary Disease-Associated Artery/Lesion type: [place] artery [place] vs. transplanted heart: [place] heart Associated angina: without angina Qualified Code(s): I25.10 - Atherosclerotic heart disease of [place] coronary artery without angina pectoris (5) AV block, Mobitz 2 Code(s): I44.1 - ATRIOVENTRICULAR BLOCK, SECOND DEGREE Assessment/Plan Persantine Myoview: 04/01/2015 No ischemia, LVEF 81% Echocardiogram: 03/29/2015 Normal LV size and fxn, MAC, mild MR, TR, AR and NM Echocardiogram: 06/01/2017 Normal LV size and fxn, MAC, mild LAE, mod-severe MR, mod TR and AR, RVSP 55 mmHg 1. Symptomatic bradycardia referable to progressive sick sinus syndrome vs AV melchor disease - secondary AV block mobitz 2 - 2:1 block 2. ASHD 3. HTN/HCVD 4. Hyperlipidemia 5. Intermittent RBBB 6. History of lumbar radiculopathy PLAN: 1. Currently off Metoprolol - still with 2:1 AV block, check EKG 2. Continue ASA 81 qd, Losartan 50 qd, Lipitor 10 qhs and Norvasc 5 qd with uptitration as tolerated 3. Check Lyme titre (she states that she has a garden behind her house where she walked) 4. Attempt ETT to assess chronotropic competence. Consider permanent pacemaker in view of advanced AV block if she still remains in 2:1 or advance block after Metoprolol has been stopped for greater than 48 hours and chronotropic incompetence is demonstrated
--- NOTE | 2017-06-02 15:24 | EKG ---
Test Reason : Blood Pressure : / mmHG Vent. Rate : 038 BPM Atrial Rate : 076 BPM P-R Int : 186 ms QRS Dur : 110 ms QT Int : 512 ms P-R-T Axes : 069 -16 045 degrees QTc Int : 407 ms SINUS RHYTHM WITH 2ND DEGREE A-V BLOCK WITH 2:1 A-V CONDUCTION INCOMPLETE RIGHT BUNDLE BRANCH BLOCK SEPTAL INFARCT (CITED ON OR BEFORE 31-MAY-2017) ABNORMAL ECG WHEN COMPARED WITH ECG OF 01-JUN-2017 09:30, INCOMPLETE RIGHT BUNDLE BRANCH BLOCK HAS REPLACED RIGHT BUNDLE BRANCH BLOCK Confirmed by KARLIE DONALD, MARIEL ([id number]) on 06/02/2017 3:24:07 PM Referred By: Zack JASSO Confirmed By:MARIEL ZIEGLER MD
--- NOTE | 2017-06-02 15:30 | TRE ---
Protocol Name : BENJAMÍN Max Work Load (METS*10) : 21 Time In Exercise Phase : 00:00:34 Max. Systolic BP : 160 mmHg Max Diastolic BP : 70 mmHg Max Heart Rate : 96 BPM Max Predicted Heart Rate : 136 BPM Attending Physician : DR. ZIEGLER Reason For Termination : Fatigue Reason for Test : CHRONOTROPIC COMPETENCE Stress Protocol : BENJAMÍN Rest HR : 68 BPM PeakEx METs : 2.1 METS Recovery ECG Response (OLD) : Diagnosis : non diagnostic est low exercise level 34seconds baseline ekg sr VR 46 2;1 AVB max hr 96 occasional 1;1 conduction no ischemic changes noted no ischemic symptoms Confirmed by KARLIE DONALD, MARIEL ([id number]) on 06/02/2017 3:30:04 PM
--- NOTE | 2017-06-02 16:58 | PN ---
Physical Exam: SUBJECTIVE: Patient seen and examined at bedside. Symptoms of fatigue and lack of energy have not improved. OBJECTIVE: Vital Signs Period Temp Pulse Resp BP Sys/Beltre Pulse Ox Last 24 Hr 97.6 F-98.6 F 38-44 16-18 112-156/33-60 98 GENERAL: The patient is awake, alert, and fully oriented, in no acute distress. HEAD: Normal with no signs of trauma. EYES: PERRL, extraocular movements intact, sclera anicteric, conjunctiva clear. No ptosis. LUNGS: Breath sounds equal, clear to auscultation bilaterally, no wheezes, no crackles, no accessory muscle use. HEART: Regular, slow rate and rhythm, S1, S2 ABDOMEN: Soft, nontender, nondistended, normoactive bowel sounds, no guarding, no rebound EXTREMITIES: 2+ pulses, warm, well-perfused, no edema. NEUROLOGICAL: Cranial nerves II through XII grossly intact. Normal speech, gait not observed. Active Medications Generic Name Dose Route Start Last Admin Trade Name Luisq PRN Reason Stop Dose Admin Amlodipine Besylate 5 mg 06/02/17 10:00 06/02/17 10:09 Norvasc - PO 5 mg DAILY MANI Administration Aspirin 81 mg 06/01/17 10:00 06/02/17 10:09 Asa - PO 81 mg DAILY MANI Administration Atorvastatin Calcium 10 mg 05/31/17 22:00 06/01/17 22:26 Lipitor - PO 10 mg HS MANI Administration Losartan Potassium 50 mg 05/31/17 17:00 06/02/17 10:09 Cozaar - PO 50 mg DAILY MANI Administration ASSESSMENT/PLAN ASSESSMENT/PLAN 82 year-old female with a PMH significant for HTN, HLD, and CAD, admitted for symptomatic bradycardia. Symptomatic bradycardia Chronotropic incompetence with sinus node dysfunction Mobitz II heart block --ECG 2:1 AV block, rate 30s --8/2 Echo: LV normal; RV normal; RODOLFO; mitral annular calcification, moderate to severe MR; moderate TR; moderate pulmonary HTN; moderate AI --8/2 EST: terminated after 34 seconds due to fatigue, non-diagnostic --continue to hold metoprolol --Lyme titer pending --tentative for PPM placement tomorrow morning Hypertension --continue losartan, amlodipine Hyperlipidemia --continue atorvastatin Coronary artery disease --continue ASA, statin; hold metoprolol F/E/N Fluids: PO intake adequate Electrolytes: keep K 4-4.5, Mg 2-2.5 Nutrition: sodium controlled DVT prophylaxis: SCDs, oob, ambulation Dispo: continues to require inpatient care. Full Code. Visit type - Emergency Visit Emergency Visit: Yes ED Registration Date: 05/31/17 Care time: The patient presented to the Emergency Department on the above date and was hospitalized for further evaluation of their emergent condition. - New Patient This patient is new to me today: No - Critical Care Critical Care patient: No - Discharge Referral Referred to [facility] Med P.C.: No
[2017-06-02] MEDS: ATORVASTATIN CA 10 MG TABLET (FP) PO SCH (21:56)
[2017-06-03 08:14] LABS: ANION GAP 8 (8-16); CALCIUM 8.3 mg/dL (8.5-10.1); CO2 25 mmol/L (21-32); CREATININE 0.9 mg/dL (0.55-1.02); GLUCOSE,RANDOM 92 mg/dL (74-106); MAGNESIUM 2.4 mg/dL (1.8-2.4)
[2017-06-03] MEDS ORDERED: DEXTROSE 5%-NORMAL SALINE 1,000 ML IV SCH (10:45)
[2017-06-03] MEDS: LOSARTAN POTASSIUM 50 MG TABLET (FP) PO SCH (10:47)
[2017-06-03] MEDS: amLODIPine BESYLATE 5 MG TABLET (FP) PO SCH (10:47)
[2017-06-03] MEDS: ASPIRIN 81 MG CHEWABLE TABLETS PO SCH (10:47)
--- NOTE | 2017-06-03 10:47 | PN ---
Progress Note, Physician History of Present Illness: Feels weak, HR in 40's. Lyme titer negative, ETT shows chronotropic competence c /w AV melchor disease. Patient ate breakfast. - Current Medication List Current Medications: Active Medications Amlodipine Besylate (Norvasc -) 5 mg PO DAILY [facility] Last Admin: 06/03/17 10:47 Dose: 5 mg Aspirin (Asa -) 81 mg PO DAILY [facility] Last Admin: 06/03/17 10:47 Dose: 81 mg Atorvastatin Calcium (Lipitor -) 10 mg PO HS [facility] Last Admin: 06/02/17 21:56 Dose: 10 mg Dextrose/Sodium Chloride (D5-Ns -) 1,000 mls @ 83 mls/hr IV ASDIR [facility] Losartan Potassium (Cozaar -) 50 mg PO DAILY [facility] Last Admin: 06/03/17 10:47 Dose: 50 mg - Objective Vital Signs: Vital Signs Temperature 98.7 F 06/03/17 06:00 Pulse Rate 38 L 06/03/17 06:00 Respiratory Rate 18 06/03/17 06:00 Blood Pressure 141/56 06/03/17 06:00 O2 Sat by Pulse Oximetry (%) 95 06/02/17 21:00 Constitutional: Yes: No Distress, Calm, Thin Neck: Yes: Supple Cardiovascular: Yes: Regular Rate and Rhythm Respiratory: Yes: Regular, CTA Bilaterally Gastrointestinal: Yes: Normal Bowel Sounds, Soft Edema: No Labs: CBC, BMP 06/01/17 05:35 06/03/17 05:35 INR, PTT INR 1.09 (0.82-1.09) 05/31/17 14:02 - ....Imaging EKG: Report Reviewed (Tele: 2:1 AV block) Problem List - Problems (1) Symptomatic bradycardia Code(s): R00.1 - BRADYCARDIA, UNSPECIFIED (2) Hyperlipidemia Code(s): E78.5 - HYPERLIPIDEMIA, UNSPECIFIED Qualifiers: Hyperlipidemia type: pure hypercholesterolemia Qualified Code(s): E78.00 - Pure hypercholesterolemia, unspecified; E78.0 - Pure hypercholesterolemia (3) Hypertensive cardiomyopathy Code(s): I11.9 - HYPERTENSIVE HEART DISEASE WITHOUT HEART FAILURE I43 - CARDIOMYOPATHY IN DISEASES CLASSIFIED ELSEWHERE Qualifiers: Heart failure presence: without heart failure Qualified Code(s): I11.9 - Hypertensive heart disease without heart failure; I43 - Cardiomyopathy in diseases classified elsewhere (4) Atherosclerotic heart disease Code(s): I25.10 - ATHSCL HEART DISEASE OF [place] CORONARY ARTERY W/O ANG PCTRS Qualifiers: Coronary Disease-Associated Artery/Lesion type: [place] artery [place] vs. transplanted heart: [place] heart Associated angina: without angina Qualified Code(s): I25.10 - Atherosclerotic heart disease of [place] coronary artery without angina pectoris (5) AV block, Mobitz 2 Code(s): I44.1 - ATRIOVENTRICULAR BLOCK, SECOND DEGREE Assessment/Plan Persantine Myoview: 04/01/2015 No ischemia, LVEF 81% Echocardiogram: 03/29/2015 Normal LV size and fxn, MAC, mild MR, TR, AR and MS Echocardiogram: 06/01/2017 Normal LV size and fxn, MAC, mild LAE, mod-severe MR, mod TR and AR, RVSP 55 mmHg 1. Symptomatic bradycardia referable to progressive sick sinus syndrome vs AV melchor disease - secondary AV block mobitz 2 - 2:1 block 2. ASHD 3. HTN/HCVD 4. Hyperlipidemia 5. Intermittent RBBB 6. History of lumbar radiculopathy PLAN: 1. Currently off Metoprolol - still with 2:1 AV block 2. Continue ASA 81 qd, Losartan 50 qd, Lipitor 10 qhs and Norvasc 5 qd with uptitration as tolerated 3. D/w EP, plan for permanent pacemaker in view of advanced AV block as she remains in 2:1 advanced AV block at rest after Metoprolol has been stopped for greater than 48 hours
[2017-06-03] MEDS ORDERED: LORazepam 0.5 MG TABLET PO ONE (11:30)
--- NOTE | 2017-06-03 12:42 | PN ---
Progress Note, Physician Chief Complaint: 2-1 heart block - Current Medication List Current Medications: Active Medications Amlodipine Besylate (Norvasc -) 5 mg PO DAILY [facility] Last Admin: 06/03/17 10:47 Dose: 5 mg Aspirin (Asa -) 81 mg PO DAILY [facility] Last Admin: 06/03/17 10:47 Dose: 81 mg Atorvastatin Calcium (Lipitor -) 10 mg PO HS [facility] Last Admin: 06/02/17 21:56 Dose: 10 mg Dextrose/Sodium Chloride (D5-Ns -) 1,000 mls @ 83 mls/hr IV ASDIR [facility] Last Admin: 06/03/17 12:22 Dose: 83 mls/hr Losartan Potassium (Cozaar -) 50 mg PO DAILY [facility] Last Admin: 06/03/17 10:47 Dose: 50 mg - Objective Vital Signs: Vital Signs Temperature 98.0 F 06/03/17 10:00 Pulse Rate 78 06/03/17 10:00 Respiratory Rate 18 06/03/17 10:00 Blood Pressure 134/62 06/03/17 10:00 O2 Sat by Pulse Oximetry (%) 95 06/03/17 09:00 Constitutional: Yes: Well Nourished HENT: Yes: WNL Cardiovascular: Yes: Bradycardia Respiratory: Yes: WNL Gastrointestinal: Yes: WNL Edema: No Labs: CBC, BMP 06/01/17 05:35 06/03/17 05:35 INR, PTT INR 1.09 (0.82-1.09) 05/31/17 14:02 - ....Imaging EKG: Image Reviewed Assessment/Plan 06/03/17: JVD EPS: persistent 2-1 block despite being off av melchor blocking agents now > 60 hours. lyme negative. was scheduled for ppm today but pt ate breakfast. - plan to reschedule for tomorrow morning. d/w daughter and patient. - keep npo after midnight tonight - vancomycin 1 gram ivss x 1 on-call to OR - keep k 4-4.5, mg 2-2.5 - care as per cardiology 06/02/17: JVD EPS: mobitz II heart block with narrow complex 2-1 conduction. asymptomatic. maintaining blood pressure. lyme disease testing pending. off av melchor blocking agents now for about 36 hours. echo normal lv systolic function. - monitor off av melchor blocking agents for 48 hours - f/u lyme titers - keep k 4-4.5, mg 2-2.5 - if remains with heart block despite above, plan for ppm (will tentatively schedule for tomorrow morning pending OR availability) - care as per cardiology Thank you for allowing me to participate in the care of this patient. Please call with any questions. Nicholas Lucas MD [phone]
--- NOTE | 2017-06-03 12:50 | PN ---
Physical Exam: SUBJECTIVE: Patient seen and examined oob to chair. Feeling very anxious about needing a new IV inserted. OBJECTIVE: Vital Signs Period Temp Pulse Resp BP Sys/Beltre Pulse Ox Last 24 Hr 97.3 F-98.7 F 38-78 18-20 114-144/47-62 95-95 GENERAL: The patient is awake, alert, and fully oriented, in no acute distress. HEAD: Normal with no signs of trauma. EYES: PERRL, extraocular movements intact, sclera anicteric, conjunctiva clear. No ptosis. LUNGS: Breath sounds equal, clear to auscultation bilaterally, no wheezes, no crackles, no accessory muscle use. HEART: Regular, slow rate and rhythm, S1, S2 ABDOMEN: Soft, nontender, nondistended, normoactive bowel sounds, no guarding, no rebound EXTREMITIES: 2+ pulses, warm, well-perfused, no edema. NEUROLOGICAL: Cranial nerves II through XII grossly intact. Normal speech, gait not observed. Laboratory Results - last 24 hr 06/01/17 06/03/17 13:05 05:35 Sodium 141 Potassium 4.8 Chloride 108 H Carbon Dioxide 25 Anion Gap 8 BUN 31 H D Creatinine 0.9 Random Glucose 92 Calcium 8.3 L Magnesium 2.4 Lyme Screen IgG & IgM <0.91 Active Medications Generic Name Dose Route Start Last Admin Trade Name Freq PRN Reason Stop Dose Admin Amlodipine Besylate 5 mg 06/02/17 10:00 06/03/17 10:47 Norvasc - PO 5 mg DAILY MANI Administration Aspirin 81 mg 06/01/17 10:00 06/03/17 10:47 Asa - PO 81 mg DAILY MANI Administration Atorvastatin Calcium 10 mg 05/31/17 22:00 06/02/17 21:56 Lipitor - PO 10 mg HS MANI Administration Dextrose/Sodium Chloride 1,000 mls @ 83 mls/hr 06/03/17 10:45 06/03/17 12:22 D5-Ns - IV 83 mls/hr ASDIR MANI Administration Losartan Potassium 50 mg 05/31/17 17:00 06/03/17 10:47 Cozaar - PO 50 mg DAILY MANI Administration ASSESSMENT/PLAN 82 year-old female with a PMH significant for HTN, HLD, and CAD, admitted for symptomatic bradycardia. Symptomatic bradycardia Chronotropic incompetence with sinus node dysfunction Mob[place] II heart block --ECG 2:1 AV block, rate 30s --06/02 Echo: LV normal; RV normal; RODOLFO; mitral annular calcification, moderate to severe MR; moderate TR; moderate pulmonary HTN; moderate AI --06/02 EST: terminated after 34 seconds due to fatigue, non-diagnostic --continue to hold metoprolol --Lyme titer negative --ate breakfast this morning, keep NPO after midnight, for PPM tomorrow morning Hypertension --continue losartan, amlodipine Hyperlipidemia --continue atorvastatin Coronary artery disease --continue ASA, statin; hold metoprolol F/E/N Fluids: PO intake adequate Electrolytes: keep K 4-4.5, Mg 2-2.5 Nutrition: NPO DVT prophylaxis: SCDs, oob, ambulation Dispo: continues to require inpatient care. Full Code. Visit type - Emergency Visit Emergency Visit: Yes ED Registration Date: 05/31/17 Care time: The patient presented to the Emergency Department on the above date and was hospitalized for further evaluation of their emergent condition. - New Patient This patient is new to me today: No - Critical Care Critical Care patient: No
[2017-06-03 13:16] LABS: URINE APPEARANCE SLCLOUDY; URINE BILIRUBIN NEGATIVE (NEGATIVE); URINE BLOOD NEGATIVE (NEGATIVE); URINE COLOR LTYELLOW; URINE GLUCOSE (UA) NEGATIVE (NEGATIVE); URINE KETONE NEGATIVE (NEGATIVE); URINE NITRITE NEGATIVE (NEGATIVE); URINE PROTEIN NEGATIVE (NEGATIVE); URINE UROBILINOGEN NEGATIVE mg/dL (0.2-1.0)
[2017-06-03 13:24] LABS: URINE LEUK ESTERASE 3+ (NEGATIVE)
[2017-06-03 13:48] LABS: URINE MUCUS RARE; URINE RBC 3 /hpf (0-3); URINE WBC 13 /hpf (3-5)
[2017-06-03] MEDS: HEPARIN NA (PORCINE) 5,000 UNITS/ML 1ML VIAL SQ SCH ×2 (14:27→21:50)
[2017-06-03] MEDS: ATORVASTATIN CA 10 MG TABLET (FP) PO SCH (21:50)
[2017-06-04] MEDS ORDERED: VANCOMYCIN 1 GRAM (PRE-DOCKED) 250 ML IVPB ONE (03:00)
[2017-06-04] MEDS ORDERED: ePHEDrine SULFATE 50 MG/1 ML AMPULE ONE (06:45)
[2017-06-04] MEDS ORDERED: PROPOFOL 20 ML ONE ×6 (06:45)
[2017-06-04] MEDS ORDERED: SUCCINYLCHOLINE CHLORIDE 200 MG/10 ML VIAL ONE (06:45)
[2017-06-04] MEDS ORDERED: MIDAZOLAM HCL 2 MG/2 ML SINGLE DOSE VIAL ONE ×2 (06:45→07:55)
[2017-06-04] MEDS ORDERED: BUPIVACAINE HCL/PF 0.5% (5MG/ML) 10 ML VIAL ONE (07:05)
[2017-06-04] MEDS ORDERED: LIDOCAINE HCL 1%, 10 MG/ML (20ML VIAL) ONE (07:05)
[2017-06-04] MEDS ORDERED: ceFAZolin SODIUM 1 GM VIAL ONE (07:05)
[2017-06-04] MEDS ORDERED: VANCOMYCIN 1,000 MG VIAL (RESTRICTED TO ID ONLY) IVPB ONE (07:26)
--- NOTE | 2017-06-04 07:31 | PN ---
Physical Exam: SUBJECTIVE: Patient seen and examined at bedside s/p PPM implantation. Area feels a litte sore. OBJECTIVE: Vital Signs Period Temp Pulse Resp BP Sys/Beltre Pulse Ox Last 24 Hr 97.8 F-98.8 F 37-78 18-20 118-142/41-67 95-96 GENERAL: The patient is awake, alert, and fully oriented, in no acute distress. HEAD: Normal with no signs of trauma. EYES: PERRL, extraocular movements intact, sclera anicteric, conjunctiva clear. No ptosis. LUNGS: Breath sounds equal, clear to auscultation bilaterally, no wheezes, no crackles, no accessory muscle use. Sterile dressing upper left chest c/d/i. HEART: Regular, slow rate and rhythm, S1, S2 ABDOMEN: Soft, nontender, nondistended, normoactive bowel sounds, no guarding, no rebound EXTREMITIES: 2+ pulses, warm, well-perfused, no edema. NEUROLOGICAL: Cranial nerves II through XII grossly intact. Normal speech, gait not observed. Laboratory Results - last 24 hr 06/01/17 06/03/17 06/03/17 13:05 05:35 11:00 Sodium 141 Potassium 4.8 Chloride 108 H Carbon Dioxide 25 Anion Gap 8 BUN 31 H D Creatinine 0.9 Random Glucose 92 Calcium 8.3 L Magnesium 2.4 Urine Color Ltyellow Urine Appearance Slcloudy Urine pH 5.0 Ur Specific [place] 1.015 Urine Protein Negative Urine Glucose (UA) Negative Urine Ketones Negative Urine Blood Negative Urine Nitrite Negative Urine Bilirubin Negative Urine Urobilinogen Negative Ur Leukocyte Esterase 3+ H Urine RBC 3 Urine WBC 13 Ur Epithelial Cells Rare Urine Mucus Rare Lyme Screen IgG & IgM <0.91 Current Medications Generic Name Dose Route Start Last Admin Trade Name Freq PRN Reason Stop Dose Admin Aspirin 81 mg 06/04/17 10:00 Asa - PO DAILY MANI Atorvastatin Calcium 10 mg 06/04/17 22:00 Lipitor - PO HS MANI Lactated Ringer's 1,000 mls @ 125 mls/hr 06/04/17 09:30 Lactated Ringers Solution IV ASDIR MANI Dextrose/Sodium Chloride 1,000 mls @ 83 mls/hr 06/04/17 09:44 D5-Ns - IV ASDIR MANI Losartan Potassium 50 mg 06/04/17 10:00 Cozaar - PO DAILY MANI Metoprolol Succinate 25 mg 06/05/17 10:00 Toprol Xl - PO DAILY [facility] ASSESSMENT/PLAN 82 year-old female with a PMH significant for HTN, HLD, and CAD, admitted for symptomatic bradycardia. Symptomatic bradycardia Chronotropic incompetence with sinus node dysfunction Mobitz II heart block --dual chamber PPM placed earlier today, HR 70s; Biotronik MRI compatible dual chamber --resume Toprol XL 25mg, d/c amlodipine Hypertension --continue losartan, Toprol XL Hyperlipidemia --continue atorvastatin Coronary artery disease --continue ASA, statin; ToprolXL F/E/N Fluids: PO intake adequate Electrolytes: keep K 4-4.5, Mg 2-2.5 Nutrition: NPO DVT prophylaxis: SCDs, oob, ambulation Dispo: resume subq heparin after procedure. Full code. Visit type - Emergency Visit Emergency Visit: Yes ED Registration Date: 05/31/17 Care time: The patient presented to the Emergency Department on the above date and was hospitalized for further evaluation of their emergent condition. - New Patient This patient is new to me today: No - Critical Care Critical Care patient: No
[2017-06-04] MEDS ORDERED: LIDOCAINE HCL 1%, 10 MG/ML (20ML VIAL) IJ ONE (08:59)
[2017-06-04] MEDS ORDERED: BACITRACIN 15 GM TUBE TOPICAL OINTMENT ONE (09:07)
[2017-06-04] MEDS ORDERED: BACITRACIN 15 GM TUBE TOPICAL OINTMENT TP ONE (09:08)
--- NOTE | 2017-06-04 09:27 | PN ---
Progress Note, Physician Chief Complaint: 2-1 heart block History of Present Illness: persistent 2-1 heart block - Current Medication List Current Medications: Active Medications Amlodipine Besylate (Norvasc -) 5 mg PO DAILY [facility] Last Admin: 06/03/17 10:47 Dose: 5 mg Aspirin (Asa -) 81 mg PO DAILY [facility] Last Admin: 06/03/17 10:47 Dose: 81 mg Atorvastatin Calcium (Lipitor -) 10 mg PO HS [facility] Last Admin: 06/03/17 21:50 Dose: 10 mg Dextrose/Sodium Chloride (D5-Ns -) 1,000 mls @ 83 mls/hr IV ASDIR [facility] Last Admin: 06/03/17 12:22 Dose: 83 mls/hr Losartan Potassium (Cozaar -) 50 mg PO DAILY [facility] Last Admin: 06/03/17 10:47 Dose: 50 mg - Objective Vital Signs: Vital Signs Temperature 98.8 F 06/04/17 06:00 Pulse Rate 40 L 06/04/17 06:00 Respiratory Rate 20 06/04/17 06:00 Blood Pressure 126/67 06/04/17 06:00 O2 Sat by Pulse Oximetry (%) 96 06/03/17 22:00 Labs: CBC, BMP 06/01/17 05:35 06/03/17 05:35 INR, PTT INR 1.09 (0.82-1.09) 05/31/17 14:02 Assessment/Plan 06/04/17: JVD EPS: remains in 2-1 heart block. for ppm today. - npo - no heparin/lovenox - vancomycin 1 gram ivss x 1 on-call to OR - LUE IVL - keep k 4-4.5, mg 2-2.5 - care as per cardiology 06/03/17: JVD EPS: persistent 2-1 block despite being off av melchor blocking agents now > 60 hours. lyme negative. was scheduled for ppm today but pt ate breakfast. - plan to reschedule for tomorrow morning. d/w daughter and patient. - keep npo after midnight tonight - vancomycin 1 gram ivss x 1 on-call to OR - keep k 4-4.5, mg 2-2.5 - care as per cardiology 06/02/17: JVD EPS: mobitz II heart block with narrow complex 2-1 conduction. asymptomatic. maintaining blood pressure. lyme disease testing pending. off av melchor blocking agents now for about 36 hours. echo normal lv systolic function. - monitor off av melchor blocking agents for 48 hours - f/u lyme titers - keep k 4-4.5, mg 2-2.5 - if remains with heart block despite above, plan for ppm (will tentatively schedule for tomorrow morning pending OR availability) - care as per cardiology Thank you for allowing me to participate in the care of this patient. Please call with any questions. Nicholas Lucas MD [phone]
--- NOTE | 2017-06-04 09:28 | OP ---
Operative Note - Note: Operative Date: 06/04/17 Pre-Operative Diagnosis: mobitz II heart block Operation: dual chamber ppm implant via the left axillary vein Implants: biotronik mri compatible dual chamber ppm Surgeon: Nicholas Lucas V Anesthesiologist/DECORATING INSTRUCTOR: Nova Shrestha Anesthesia: Local, MAC Estimated Blood Loss (mls): 10 Operative Report Dictated: Yes
[2017-06-04] MEDS ORDERED: ONDANSETRON 4 MG/2 ML VIAL IVPUSH PRN (09:30)
[2017-06-04] MEDS ORDERED: amLODIPine BESYLATE 5 MG TABLET (FP) PO SCH (10:00)
--- NOTE | 2017-06-04 11:51 | PN ---
Progress Note, Physician History of Present Illness: Post implant Biotronik dual chamber pacer without sequelae. Mild incisional discomfort. - Current Medication List Current Medications: Active Medications Amlodipine Besylate (Norvasc -) 5 mg PO DAILY MANI Aspirin (Asa -) 81 mg PO DAILY MANI Atorvastatin Calcium (Lipitor -) 10 mg PO HS MANI Fentanyl (Sublimaze Injection -) 25 mcg IVPUSH [id number] PRN PRN Reason: PAIN Stop: 06/07/17 09:31 Lactated Ringer's (Lactated Ringers Solution) 1,000 mls @ 125 mls/hr IV ASDIR MANI Dextrose/Sodium Chloride (D5-Ns -) 1,000 mls @ 83 mls/hr IV ASDIR MANI Losartan Potassium (Cozaar -) 50 mg PO DAILY [facility]I Ondansetron HCl (Zofran Injection) 4 mg IVPUSH Q6H PRN PRN Reason: NAUSEA AND/OR VOMITING Stop: 06/04/17 15:31 - Objective Vital Signs: Vital Signs Temperature 97.8 F 06/04/17 11:34 Pulse Rate 76 06/04/17 11:34 Respiratory Rate 20 06/04/17 11:34 Blood Pressure 148/86 06/04/17 11:34 O2 Sat by Pulse Oximetry (%) 97 06/04/17 10:45 Constitutional: Yes: No Distress, Calm, Thin Neck: Yes: Supple Cardiovascular: Yes: Regular Rate and Rhythm Respiratory: Yes: Regular, CTA Bilaterally Gastrointestinal: Yes: Normal Bowel Sounds, Soft Edema: No Labs: CBC, BMP 06/01/17 05:35 06/03/17 05:35 INR, PTT INR 1.09 (0.82-1.09) 05/31/17 14:02 - ....Imaging EKG: Report Reviewed (Tele: A-V paced) Problem List - Problems (1) Symptomatic bradycardia Code(s): R00.1 - BRADYCARDIA, UNSPECIFIED (2) Hyperlipidemia Code(s): E78.5 - HYPERLIPIDEMIA, UNSPECIFIED Qualifiers: Qualified Code(s): E78.00 - Pure hypercholesterolemia, unspecified; E78.0 - Pure hypercholesterolemia (3) Hypertensive cardiomyopathy Code(s): I11.9 - HYPERTENSIVE HEART DISEASE WITHOUT HEART FAILURE I43 - CARDIOMYOPATHY IN DISEASES CLASSIFIED ELSEWHERE Qualifiers: Qualified Code(s): I11.9 - Hypertensive heart disease without heart failure; I43 - Cardiomyopathy in diseases classified elsewhere (4) Atherosclerotic heart disease Code(s): I25.10 - ATHSCL HEART DISEASE OF [place] CORONARY ARTERY W/O ANG PCTRS Qualifiers: Qualified Code(s): I25.10 - Atherosclerotic heart disease of [place] coronary artery without angina pectoris (5) AV block, Mobitz 2 Code(s): I44.1 - ATRIOVENTRICULAR BLOCK, SECOND DEGREE (6) Status post placement of cardiac pacemaker Code(s): Z95.0 - PRESENCE OF CARDIAC PACEMAKER Assessment/Plan Persantine Myoview: 04/01/2015 No ischemia, LVEF 81% Echocardiogram: 03/29/2015 Normal LV size and fxn, MAC, mild MR, TR, AR and ME Echocardiogram: 06/01/2017 Normal LV size and fxn, MAC, mild LAE, mod-severe MR, mod TR and AR, RVSP 55 mmHg 1. Advanced 2:1 AV block s/p dual chamber Biotronik MRI compatible PPM 2. ASHD 3. HTN/HCVD 4. Hyperlipidemia 5. Intermittent RBBB 6. History of lumbar radiculopathy PLAN: 1. May resume Toprol XL 25 qd, d/c Norvasc 5 qd 2. Continue ASA 81 qd, Losartan 50 qd, and Lipitor 10 qhs 3. D/c planning in AM, wound check with Dr. Lucas, pacer checks in office
[2017-06-04] MEDS: LACTATED RINGERS SOLUTION 1,000 ML IV SCH (12:32)
[2017-06-04] MEDS: DEXTROSE 5%-NORMAL SALINE 1,000 ML IV SCH (12:33)
[2017-06-04] MEDS: ASPIRIN 81 MG CHEWABLE TABLETS PO SCH (12:33)
[2017-06-04] MEDS: LOSARTAN POTASSIUM 50 MG TABLET (FP) PO SCH (12:45)
[2017-06-04] MEDS ORDERED: ATORVASTATIN CA 10 MG TABLET (FP) PO SCH (22:00)
[2017-06-04] MEDS ORDERED: traMADol HCL 50 MG TABLET PO ONE (22:35)
[2017-06-04] MEDS ORDERED: LORazepam 0.5 MG TABLET PO ONE (22:37)
--- NOTE | 2017-06-05 06:53 | HOSP ---
Subjective - Review of Symptoms Events since last encounter: Hospitalist Encounter Notified by RN, the patient reports left flank pain after moving in her bed. Arrived to bedside patient is alert, awake and oriented, reports having intermittent left flank pain overnight. Patient denies dysuria, frequency, urgency Order UA Will have Day Team follow up Musculoskeletal: Yes: Other (left flank pain) Physical Examination Vital Signs: Vital Signs Temperature 97.9 F 06/05/17 06:00 Pulse Rate 77 06/05/17 06:00 Respiratory Rate 16 06/05/17 06:00 Blood Pressure 149/89 06/05/17 06:00 O2 Sat by Pulse Oximetry (%) 97 06/04/17 22:00 Constitutional: Yes: Anxious Cardiovascular: Yes: Pulse Irregular, S1, S2 Respiratory: Yes: WNL, Regular, CTA Bilaterally Musculoskeletal: Yes: Other (left flank pain upon deep palpation) Neurological: Yes: WNL, Alert, Oriented Psychiatric: Yes: WNL, Alert, Oriented Labs: CBC, BMP 06/01/17 05:35 06/03/17 05:35 Current Medications Generic Name Dose Route Start Last Admin Trade Name Freq PRN Reason Stop Dose Admin Aspirin 81 mg 06/04/17 10:00 06/04/17 12:33 Asa - PO Not Given DAILY MANI Atorvastatin Calcium 10 mg 06/04/17 22:00 06/04/17 22:48 Lipitor - PO 10 mg HS MANI Administration Lactated Ringer's 1,000 mls @ 125 mls/hr 06/04/17 09:30 06/04/17 12:32 Lactated Ringers Solution IV Not Given ASDIR MANI Dextrose/Sodium Chloride 1,000 mls @ 83 mls/hr 06/04/17 09:44 06/04/17 12:33 D5-Ns - IV Not Given ASDIR MANI Losartan Potassium 50 mg 06/04/17 10:00 06/04/17 12:45 Cozaar - PO 50 mg DAILY MANI Administration Metoprolol Succinate 25 mg 06/05/17 10:00 Toprol Xl - PO DAILY MANI
--- NOTE | 2017-06-05 08:18 | EKG ---
Test Reason : Blood Pressure : / mmHG Vent. Rate : 065 BPM Atrial Rate : 065 BPM P-R Int : 280 ms QRS Dur : 154 ms QT Int : 482 ms P-R-T Axes : 052 088 -68 degrees QTc Int : 501 ms Atrial-sensed ventricular-paced rhythm with prolonged AV conduction ABNORMAL ECG WHEN COMPARED WITH ECG OF 02-JUN-2017 11:31, ELECTRONIC VENTRICULAR PACEMAKER HAS REPLACED SINUS RHYTHM VENT. RATE HAS INCREASED BY 27 BPM Confirmed by MARIEL ZIEGLER MD ([id number]) on 06/05/2017 8:17:38 AM Referred By: COLTON CLAY Confirmed By:MARIEL ZIEGLER MD
[2017-06-05 08:35] LABS: URINE APPEARANCE CLEAR; URINE BILIRUBIN NEGATIVE (NEGATIVE); URINE BLOOD NEGATIVE (NEGATIVE); URINE COLOR STRAW; URINE GLUCOSE (UA) NEGATIVE (NEGATIVE); URINE KETONE NEGATIVE (NEGATIVE); URINE NITRITE NEGATIVE (NEGATIVE); URINE PROTEIN NEGATIVE (NEGATIVE); URINE UROBILINOGEN NEGATIVE mg/dL (0.2-1.0)
[2017-06-05 09:09] LABS: URINE LEUK ESTERASE 2+ (NEGATIVE)
--- NOTE | 2017-06-05 09:30 | OP ---
DATE OF OPERATION: 06/04/2017 PROCEDURE: Dual-chamber pacemaker implant. SURGEON: Nicholas Lucas MD ANESTHESIOLOGIST: Nova Shrestha MD COMPLICATIONS: None. BLOOD LOSS: Minimal. This is an 82-year-old female with a past medical history of coronary artery disease, hypertension, increased cholesterol, who presented with Mobitz II heart block which has persisted despite being on AV melchor blocking therapy, negative Lyme titer, is here for a pacemaker implant. The patient met standard criteria for implantation of a dual-chamber pacemaker. Informed consent was obtained and adequate time for questions and answers was offered to the patient and her daughter prior to the procedure. PROCEDURE: Preoperative antibiotics were administered. The procedure was performed during continuous ECG monitoring and with both conscious sedation and local anesthesia administered. Oxygen saturation and exhaled CO2 content were monitored continuously. The left infraclavicular region was prepped and broadly draped. Following the administration of local anesthesia, an incision was made in the left deltopectoral groove. Using a combination of blunt and sharp dissection and with cautious attention to hemostasis, the cephalic vein was sought for but unable to be found. Under fluoroscopic guidance, axillary venous access was obtained. Using fluoroscopic guidance, 2 guidewires were advanced into the central venous circulation and a hemostatic introducer was passed over the ventricular guidewire. Using fluoroscopic guidance, the ventricular lead was advanced to the right ventricle and was positioned into the upper septum where acute pacing and sensing thresholds and impedances were found to be adequate. The introducer was then removed. Utilizing similar technique, the atrial lead was positioned into the right atrial appendage where acute pacing and sensing thresholds and impedances were found to be adequate. After assuring that lead positions were stable and that sensing and pacing thresholds and impedances were adequate following stilet removal, the proximal portions of the leads were stabilized by securing the leads to tissue at the venous access site using nonabsorbable silk sutures. A subcutaneous pocket was created contiguous with the incision site and hemostasis was secured. All sponges were removed and the wound was irrigated with antibiotic solution. The pulse generator was then connected to the proximal portions of the pacemaker leads and after confirming the adequacy of the electrical connections the device was placed in the pocket. The incision was then closed in layers using absorbable sutures. Dermabond and bacitracin were applied. A sterile bandage was applied. Proper device function was confirmed and the patient was transferred to the postprocedure monitoring area for additional observation. Final device settings were as follows: Biotronik Eluna DRT MRI-compatible dual-chamber pacemaker, serial number [id number], implanted June 04, 2017. DDD 50 to 130 beats per minute. The atrial lead was a Biotronik Solia S 45, serial number [id number], implanted June 04, 2017, bipolar polarity, P waves 1.4 mV, sensitivity 0.5 mV, atrial impedance 475 ohms, atrial threshold 0.8 V at 0.4 msec, amplitude 3.0 V at 0.4 msec. The ventricular lead was a Biotronik Solia S 53, serial number [id number], implanted June 04, 2017, bipolar polarity, R waves 10.1 mV, sensitivity 2.5 mV, ventricular impedance 546 ohms, ventricular threshold 0.6 V at 0.4 msec, amplitude 3.0 V at 0.4 msec. Марина [id number] cc: Ceasar Cornejo MD
[2017-06-05] MEDS: DEXTROSE 5%-NORMAL SALINE 1,000 ML IV SCH (10:12)
[2017-06-05] MEDS: METOPROLOL SUCCINATE 25 MG TAB.SR.24H (FP) PO SCH ×3 (10:12→11:01)
[2017-06-05] MEDS: ASPIRIN 81 MG CHEWABLE TABLETS PO SCH (10:12)
[2017-06-05] MEDS: LOSARTAN POTASSIUM 50 MG TABLET (FP) PO SCH (10:12)
[2017-06-05] MEDS: LACTATED RINGERS SOLUTION 1,000 ML IV SCH (10:13)
--- NOTE | 2017-06-05 11:11 | PN ---
Progress Note, Physician Chief Complaint: Events noted Not in distress, but had complained of left flank pain History of Present Illness: Patient was seen and examined. Awake and alert. Chart was reviewed Denies chest pain, shortness of breath or palpitation Complained of left flank pain intermittently Episode of slow HR ventricular pacing at 40 bpm with what appears to be 2:1 is when pacemaker was being interrogated for sensing test. Pacemaker is working appropriately. - Current Medication List Current Medications: Active Medications Aspirin (Asa -) 81 mg PO DAILY [facility] Last Admin: 06/05/17 10:12 Dose: 81 mg Atorvastatin Calcium (Lipitor -) 10 mg PO HS [facility] Last Admin: 06/04/17 22:48 Dose: 10 mg Lactated Ringer's (Lactated Ringers Solution) 1,000 mls @ 125 mls/hr IV ASDIR [facility] Last Admin: 06/05/17 10:13 Dose: Not Given Dextrose/Sodium Chloride (D5-Ns -) 1,000 mls @ 83 mls/hr IV ASDIR [facility] Last Admin: 06/05/17 10:12 Dose: Not Given Losartan Potassium (Cozaar -) 50 mg PO DAILY [facility] Last Admin: 06/05/17 10:12 Dose: 50 mg Metoprolol Succinate (Toprol Xl -) 25 mg PO DAILY [facility] Last Admin: 06/05/17 11:01 Dose: 25 mg - Objective Vital Signs: Vital Signs Temperature 97.9 F 06/05/17 06:00 Pulse Rate 77 06/05/17 06:00 Respiratory Rate 16 06/05/17 06:00 Blood Pressure 149/89 06/05/17 06:00 O2 Sat by Pulse Oximetry (%) 97 06/04/17 22:00 Neck: Yes: Supple Cardiovascular: Yes: Regular Rate and Rhythm, S1, S2 Respiratory: Yes: CTA Bilaterally Gastrointestinal: Yes: Normal Bowel Sounds, Soft. No: Tenderness Edema: No Additional Findings/Remarks: - Review of Systems Constitutional: denies: Chills, Fever Cardiovascular: denies: Chest Pain. denies: Palpitations, Shortness of Breath Respiratory: denies: Cough, Hemoptysis, Orthopnea, PND, SOB, SOB on Exertion Gastrointestinal: denies: Nausea, Vomiting. denies: Abdominal Pain, Constipation, Diarrhea, Melena, Rectal Bleeding Neurological: denies: Dizziness, Headache, Seizure, Syncope Problem List - Problems (1) AV block, Mobitz 2 Code(s): I44.1 - ATRIOVENTRICULAR BLOCK, SECOND DEGREE (2) Atherosclerotic heart disease Code(s): I25.10 - ATHSCL HEART DISEASE OF [place] CORONARY ARTERY W/O ANG PCTRS Qualifiers: Coronary Disease-Associated Artery/Lesion type: [place] artery [place] vs. transplanted heart: [place] heart Associated angina: without angina Qualified Code(s): I25.10 - Atherosclerotic heart disease of [place] coronary artery without angina pectoris (3) Hyperlipidemia Code(s): E78.5 - HYPERLIPIDEMIA, UNSPECIFIED Qualifiers: Hyperlipidemia type: pure hypercholesterolemia Qualified Code(s): E78.00 - Pure hypercholesterolemia, unspecified; E78.0 - Pure hypercholesterolemia (4) Hypertensive cardiomyopathy Code(s): I11.9 - HYPERTENSIVE HEART DISEASE WITHOUT HEART FAILURE I43 - CARDIOMYOPATHY IN DISEASES CLASSIFIED ELSEWHERE Qualifiers: Heart failure presence: without heart failure Qualified Code(s): I11.9 - Hypertensive heart disease without heart failure; I43 - Cardiomyopathy in diseases classified elsewhere (5) Symptomatic bradycardia Code(s): R00.1 - BRADYCARDIA, UNSPECIFIED (6) Pacemaker Code(s): Z95.0 - PRESENCE OF CARDIAC PACEMAKER Assessment/Plan 1. Symptomatic bradycardia referable to secondary AV block mobitz 2 - 2:1 block S/P dual chamber pacemaker implant 2. ASHD 3. HTN/HCVD 4. Hyperlipidemia 5. Intermittent RBBB 6. History of lumbar radiculopathy 7. Left flank pain - etiology to be determined, rule out urinary tract infection PLAN: 1. Restarted on Metoprolol yesterday. 2. Continue ASA 81 qd, Losartan 50 qd and Lipitor 10 qhs d) 3. Pacemaker interrogation as per protocol. Discharge home today and follow up with Dr. Curtis in the office Ceasar Cornejo MD
--- NOTE | 2017-06-05 13:23 | DS ---
Physical Exam: SUBJECTIVE: Patient seen and examined oob to chair s/p PPM placement. Feels more energetic. OBJECTIVE: Vital Signs Period Temp Pulse Resp BP Sys/Beltre Pulse Ox Last 24 Hr 97.5 F-98.4 F 73-87 16-20 113-156/64-89 94-97 PHYSICAL EXAM GENERAL: The patient is awake, alert, and fully oriented, in no acute distress. HEAD: Normal with no signs of trauma. EYES: PERRL, extraocular movements intact, sclera anicteric, conjunctiva clear. No ptosis. LUNGS: Breath sounds equal, clear to auscultation bilaterally, no wheezes, no crackles, no accessory muscle use. Sterile dressing upper left chest c/d/i. HEART: Regular, slow rate and rhythm, S1, S2 ABDOMEN: Soft, nontender, nondistended, normoactive bowel sounds, no guarding, no rebound EXTREMITIES: 2+ pulses, warm, well-perfused, no edema. NEUROLOGICAL: Cranial nerves II through XII grossly intact. Normal speech, gait not observed. LABS Laboratory Results - last 24 hr 06/05/17 08:00 Urine Color Straw Urine Appearance Clear Urine pH 5.0 Ur Specific [place] 1.015 Urine Protein Negative Urine Glucose (UA) Negative Urine Ketones Negative Urine Blood Negative Urine Nitrite Negative Urine Bilirubin Negative Urine Urobilinogen Negative Ur Leukocyte Esterase 2+ H HOSPITAL COURSE: Date of Admission:05/31/17 Date of Discharge: 06/05/17 Pre hospital course Patient is an 82 year old female with a significant past medical history of CAD , hypertension and hyperlipidemia. She presented to the ED from her PCP's office with symptomatic bradycardia (heart rate 32 bpm). Patient had gone to her PCP for worsening generalized weakness, fatigue, exercise intolerance and lightheadedness for approximately 2-3 days. Patient also reported dyspnea on exertion. She denied chest pain, syncope, heart palpitations. She denied fever or chills. ER course (1) EKG SR with second degree AV block 2:1 block (2) Chest Xray no acute intrathoracic abnormality seen (3) Troponins negative x 1 Subsequent hospital course Symptomatic bradycardia Chronotropic incompetence with sinus node dysfunction Mobitz II heart block --dual chamber PPM placed 06/04; HR 70s; [employer] Interactive MRI compatible dual chamber ; interrogated 06/05 --resume Toprol XL 25mg, d/c'd amlodipine Hypertension --continued losartan, Toprol XL Hyperlipidemia --continued atorvastatin Coronary artery disease --continued ASA, statin; Toprol XL Minutes to complete discharge: 35 Discharge Summary Reason For Visit: BRADYCARDIA Current Active Problems AV block, Mobitz 2 (Acute) Atherosclerotic heart disease (Acute) Hyperlipidemia (Acute) Hypertensive cardiomyopathy (Acute) Pacemaker (Acute) Status post placement of cardiac pacemaker (Acute) Symptomatic bradycardia (Acute) Condition: Improved - Instructions Diet, Activity, Other Instructions: You need to follow up with Dr. Lucas for a post-surgical exam and with Dr. Curtis for regular pacemaker checks. You should continue taking losartan and metoprolol. Stop taking amlodipine/ Norvasc. Return to the emergency department for any new or worsening symptoms. Referrals: Sherita Desai MD [Primary Care Provider] - Nicholas Lucas MD [Staff Physician] - 1 Week Gerardo Curtis MD [Staff Physician] - 2 Weeks Disposition: HOME - Home Medications Comprehensive Discharge Medication List: Ambulatory Orders Aspirin [Ecotrin] 81 mg PO DAILY 05/31/17 Losartan Potassium 50 mg PO DAILY 05/31/17 Metoprolol Succinate [Toprol XL -] 25 mg PO HS 05/31/17 Omeprazole 20 mg PO DAILY 05/31/17 This patient is new to me today: No Emergency Visit: Yes ED Registration Date: 05/31/17 Care time: The patient presented to the Emergency Department on the above date and was hospitalized for further evaluation of their emergent condition. Critical Care patient: No - Discharge Referral Referred to [facility] Med [facility] No
[2017-06-05 14:40] VITALS: BP 141/69; PULSE 76; TEMP 97.5
== END 2017-06-05 14:55 | disposition home or self-care (01) | DRG 244 ==
LOC: JER 13:21 → JERBED 15:34 → J4S 18:15 → OBSVTOIN 18:35
PROVIDERS: ADMIT Internal Medicine; ATTEND Nurse Practitioner Acute Care
PROC: 02H63JZ Insertion of Pacemaker Lead into Right Atrium, Percutaneous Approach (ICD-10-PCS; 2017-06-04)
PROC: 02HK3JZ Insertion of Pacemaker Lead into Right Ventricle, Percutaneous Approach (ICD-10-PCS; 2017-06-04)
PROC: 0JH606Z Insertion of Pacemaker, Dual Chamber into Chest Subcutaneous Tissue and Fascia, Open Approach (ICD-10-PCS; principal; 2017-06-04 07:15)
DX: I49.5 Sick sinus syndrome (principal); I25.10 Atherosclerotic heart disease of native coronary artery without angina pectoris; E78.5 Hyperlipidemia, unspecified; Z88.0 Allergy status to penicillin; I44.1 Atrioventricular block, second degree; I42.8 Other cardiomyopathies; I45.19 Other right bundle-branch block; I11.9 Hypertensive heart disease without heart failure; Z95.0 Presence of cardiac pacemaker
CPT/HCPCS: 36415; 71010-TC; 71020-TC; 76000-TC; 80048; 80053; 80061; 81003; 81015; 83721; 83735; 84443; 84484; 85025; 85610; 86618; 87040; 87086; 93005; 93010; 93017; 93018; 93306-TC; 94760; 99285-25; G0378; J1644

== ENCOUNTER 2020-11-19 10:11 | Inpatient (IN) | payer OTHER, MEDICARE ==
[2020-11-19] MEDS ORDERED: LACTATED RINGERS SOLUTION 1000 ML INFUS.BAG IV ONE (10:36)
[2020-11-19] MEDS ORDERED: ACETAMINOPHEN 1000 MG/100 ML VIAL (NON FORMULARY) IVPB ONE (10:47)
[2020-11-19] MEDS ORDERED: ACETAMINOPHEN INJECTION 100 ML IVPB ONE (10:48)
[2020-11-19 10:49] VITALS: BMI 26.6
[2020-11-19 11:07] LABS: BASO % 1.2 % (0-2.0); EOS % 0.3 % (0-4.5); HEMATOCRIT 37.6 % (32.4-45.2); HEMOGLOBIN 12.6 GM/dl (10.7-15.3); LYMPH % 13.5 % (8-40); MCH 30.5 pg (25.7-33.7); MCHC 33.4 g/dl (32.0-36.0); MEAN CELL VOLUME 91.5 fl (80-96); MEAN PLT VOLUME 8.1 fl (7.5-11.1); MONO % 13.5 % (3.8-10.2); NEUT % 71.5 % (42.8-82.8); PLATELET COUNT 270 K/MM3 (134-434); RBC 4.11 M/mm3 (3.60-5.2); RDW 13.4 % (11.6-15.6); WHITE BLOOD COUNT 8.2 K/mm3 (4.0-10.8)
[2020-11-19 11:14] LABS: ALBUMIN 3.1 g/dl (3.4-5.0); BILIRUBIN,TOTAL 0.7 mg/dl (0.2-1); CALCIUM 8.1 mg/dl (8.5-10); CREATININE 0.8 mg/dl (0.55-1.3); POTASSIUM 3.9 mmol/L (3.5-5.1); TOT PROT 6.3 g/dl (6.4-8.2)
[2020-11-19 12:17] LABS: ACTIVATED PTT 23.2 SECONDS (25.2-36.5)
[2020-11-19 12:21] LABS: INR 1.26 (0.82-1.09); PROTHROMBIN TIME (PATIENT) 13.9 SEC (10.2-13.0)
[2020-11-19] MEDS ORDERED: SODIUM CHLORIDE 0.9% 500 ML INFUS.BAG IV ONE (13:03)
[2020-11-19] MEDS ORDERED: DEXAMETHASONE SOD PHOSPHATE 4 MG/1 ML VIAL IVPUSH ONE (13:13)
[2020-11-19] MEDS ORDERED: DEXAMETHASONE SOD PHOSPHATE 10 MG/1 ML VIAL ONE ×2 (13:18→20:51)
[2020-11-19] MEDS: LOSARTAN POTASSIUM 50 MG TABLET PO SCH (14:25)
[2020-11-19] MEDS: ASPIRIN COATED 81 MG TABLET.EC PO SCH (14:26)
[2020-11-19] MEDS ORDERED: ENOXAPARIN NA (PORCINE) 60 MG/0.6 ML DISP.SYRIN SQ ONE (16:35)
[2020-11-19] MEDS: ENOXAPARIN NA (PORCINE) 40 MG/0.4 ML DISP.SYRIN SQ SCH (16:39)
[2020-11-19] MEDS ORDERED: ACETAMINOPHEN 325 MG TABLET (FP) ONE (20:51)
[2020-11-19] MEDS ORDERED: metoPROLOL SUCCINATE 25 MG TAB.SR.24H (FP) ONE (23:34)
[2020-11-19] MEDS: metoPROLOL SUCCINATE 25 MG TAB.SR.24H (FP) PO SCH (23:38)
[2020-11-20 08:01] LABS: BASO % 0.4 % (0-2.0); HEMATOCRIT 39.5 % (32.4-45.2); HEMOGLOBIN 13.1 GM/dL (10.7-15.3); MCH 30.1 pg (25.7-33.7); MEAN CELL VOLUME 91.1 fl (80-96); MEAN PLT VOLUME 8.5 fl (7.5-11.1); MONO % 11.6 % (3.8-10.2); PLATELET COUNT 311 K/MM3 (134-434); RBC 4.34 M/mm3 (3.60-5.2); RDW 13.9 % (11.6-15.6); WHITE BLOOD COUNT 6.2 K/mm3 (4.0-10.0)
[2020-11-20 08:36] LABS: N-TERMINAL BNP 2159.9 pg/ml (5-450)
[2020-11-20 09:25] LABS: ALBUMIN 2.8 g/dl (3.4-5.0); BILIRUBIN,TOTAL 0.4 mg/dL (0.2-1); BLOOD UREA NITROGEN 13.9 mg/dL (7-18); CALCIUM 8.3 mg/dL (8.5-10.1); CREATININE 0.6 mg/dL (0.55-1.3); MAGNESIUM 2.2 mg/dL (1.8-2.4); POTASSIUM 4.3 mmol/L (3.5-5.1); TOT PROT 6.5 g/dl (6.4-8.2)
[2020-11-20 09:30] LABS: ACTIVATED PTT 28.6 SECONDS (25.2-36.5); INR 1.06 (0.83-1.09)
[2020-11-20] MEDS ORDERED: DEXAMETHASONE SOD PHOSPHATE 4 MG/1 ML VIAL IVPUSH SCH (10:45)
[2020-11-20] MEDS: CHOLECALCIFEROL (VIT D3) 1,000 UNIT (25 MCG) TABLET PO SCH (11:28)
[2020-11-20] MEDS: ASCORBIC ACID 250 MG TABLET (FP) PO SCH ×2 (11:28→21:49)
[2020-11-20] MEDS: ENOXAPARIN NA (PORCINE) 40 MG/0.4 ML DISP.SYRIN SQ SCH (11:28)
[2020-11-20] MEDS: ZINC SULFATE 220 MG CAPSULE (FP) PO SCH (11:28)
[2020-11-20] MEDS: LOSARTAN POTASSIUM 50 MG TABLET PO SCH (11:29)
[2020-11-20] MEDS ORDERED: REMDESIVIR 200 MG in SODIUM CHLORIDE 210 ML IVPB ONE (13:00)
[2020-11-20] MEDS: ASPIRIN COATED 81 MG TABLET.EC PO SCH (14:41)
[2020-11-20] MEDS: SOLIFENACIN SUCCINATE 5 MG TAB PO SCH (14:41)
[2020-11-20] MEDS: FAMOTIDINE 20 MG TABLET PO SCH (14:42)
[2020-11-20] MEDS: metoPROLOL SUCCINATE 25 MG TAB.SR.24H (FP) PO SCH (21:48)
[2020-11-21] MEDS ORDERED: DOCUSATE SODIUM 100 MG CAPSULE (FP) PO ONE (06:15)
[2020-11-21 10:06] LABS: ALBUMIN 2.7 g/dl (3.4-5.0); BLOOD UREA NITROGEN 22.3 mg/dL (7-18)
[2020-11-21 10:07] LABS: CALCIUM 8.2 mg/dL (8.5-10.1)
[2020-11-21 10:09] LABS: CREATININE 0.8 mg/dL (0.55-1.3)
[2020-11-21 10:10] LABS: PHOSPHOROUS 2.4 mg/dL (2.5-4.9)
[2020-11-21 10:11] LABS: BILIRUBIN,TOTAL 0.4 mg/dL (0.2-1); TOT PROT 6.1 g/dl (6.4-8.2)
[2020-11-21 11:13] LABS: BASO % 0.3 % (0-2.0); EOS % 0.9 % (0-4.5); HEMATOCRIT 35.4 % (32.4-45.2); HEMOGLOBIN 11.8 GM/dL (10.7-15.3); LYMPH % 19.2 % (8-40); MCH 30.4 pg (25.7-33.7); MCHC 33.2 g/dl (32.0-36.0); MEAN CELL VOLUME 91.4 fl (80-96); MEAN PLT VOLUME 8.7 fl (7.5-11.1); MONO % 12.4 % (3.8-10.2); NEUT % 67.2 % (42.8-82.8); PLATELET COUNT 366 K/MM3 (134-434); RBC 3.87 M/mm3 (3.60-5.2); RDW 13.9 % (11.6-15.6); WHITE BLOOD COUNT 11.1 K/mm3 (4.0-10.0)
[2020-11-21] MEDS: LOSARTAN POTASSIUM 50 MG TABLET PO SCH (11:17)
[2020-11-21] MEDS: ASCORBIC ACID 250 MG TABLET (FP) PO SCH ×2 (11:18→21:09)
[2020-11-21] MEDS: ASPIRIN COATED 81 MG TABLET.EC PO SCH (11:18)
[2020-11-21] MEDS: CHOLECALCIFEROL (VIT D3) 1,000 UNIT (25 MCG) TABLET PO SCH (11:18)
[2020-11-21] MEDS: FAMOTIDINE 20 MG TABLET PO SCH (11:18)
[2020-11-21] MEDS: ZINC SULFATE 220 MG CAPSULE (FP) PO SCH (11:18)
[2020-11-21] MEDS: DEXAMETHASONE SOD PHOSPHATE 4 MG/1 ML VIAL IVPUSH SCH (11:19)
[2020-11-21] MEDS: prednisoLONE ACETATE 1% OPHTH SUSP 5 ML BOTTLE OD SCH (11:20)
[2020-11-21] MEDS: ENOXAPARIN NA (PORCINE) 40 MG/0.4 ML DISP.SYRIN SQ SCH (11:21)
[2020-11-21 12:15] LABS: ERYTHROCYTE SEDIMENTATION RATE 38 mm/hr (0-30)
[2020-11-21] MEDS ORDERED: METOCLOPRAMIDE HCL INJECTION 10 MG/2 ML VIAL IVPUSH ONE (13:00)
[2020-11-21] MEDS: REMDESIVIR 100 MG in SODIUM CHLORIDE 230 ML IVPB SCH (14:18)
[2020-11-21] MEDS: SOLIFENACIN SUCCINATE 5 MG TAB PO SCH ×2 (14:37→22:25)
[2020-11-21] MEDS: metoPROLOL SUCCINATE 25 MG TAB.SR.24H (FP) PO SCH (21:09)
[2020-11-22] MEDS: ZINC SULFATE 220 MG CAPSULE (FP) PO SCH (10:00)
[2020-11-22] MEDS: ENOXAPARIN NA (PORCINE) 40 MG/0.4 ML DISP.SYRIN SQ SCH (10:00)
[2020-11-22] MEDS: ASPIRIN COATED 81 MG TABLET.EC PO SCH (10:01)
[2020-11-22] MEDS: FAMOTIDINE 20 MG TABLET PO SCH (10:01)
[2020-11-22] MEDS: DEXAMETHASONE SOD PHOSPHATE 4 MG/1 ML VIAL IVPUSH SCH (10:01)
[2020-11-22] MEDS: LOSARTAN POTASSIUM 50 MG TABLET PO SCH (10:01)
[2020-11-22] MEDS: CHOLECALCIFEROL (VIT D3) 1,000 UNIT (25 MCG) TABLET PO SCH (10:02)
[2020-11-22] MEDS: prednisoLONE ACETATE 1% OPHTH SUSP 5 ML BOTTLE OD SCH (10:42)
[2020-11-22] MEDS: ASCORBIC ACID 250 MG TABLET (FP) PO SCH ×2 (10:42→21:42)
[2020-11-22] MEDS: SOLIFENACIN SUCCINATE 5 MG TAB PO SCH (14:36)
[2020-11-22] MEDS: REMDESIVIR 100 MG in SODIUM CHLORIDE 230 ML IVPB SCH (14:36)
[2020-11-22] MEDS: metoPROLOL SUCCINATE 25 MG TAB.SR.24H (FP) PO SCH (21:41)
[2020-11-22 22:00] LABS: BASO % 0.4 % (0-2.0); HEMATOCRIT 37.2 % (32.4-45.2); HEMOGLOBIN 12.3 GM/dL (10.7-15.3); LYMPH % 15.9 % (8-40); MCH 30.1 pg (25.7-33.7); MCHC 33.2 g/dl (32.0-36.0); MEAN CELL VOLUME 90.5 fl (80-96); MEAN PLT VOLUME 8.9 fl (7.5-11.1); MONO % 8.9 % (3.8-10.2); NEUT % 74.8 % (42.8-82.8); PLATELET COUNT 424 K/MM3 (134-434); RBC 4.11 M/mm3 (3.60-5.2); RDW 13.8 % (11.6-15.6); WHITE BLOOD COUNT 9.3 K/mm3 (4.0-10.0)
[2020-11-22 22:25] LABS: POTASSIUM 4.4 mmol/L (3.5-5.1)
[2020-11-22 22:26] LABS: CALCIUM 8.3 mg/dL (8.5-10.1)
[2020-11-22 22:27] LABS: ALBUMIN 2.7 g/dl (3.4-5.0)
[2020-11-22 22:30] LABS: CREATININE 0.9 mg/dL (0.55-1.3)
[2020-11-22 22:31] LABS: PHOSPHOROUS 2.7 mg/dL (2.5-4.9)
[2020-11-22 22:32] LABS: BILIRUBIN,TOTAL 0.3 mg/dL (0.2-1); TOT PROT 6.2 g/dl (6.4-8.2)
[2020-11-22 22:39] LABS: ERYTHROCYTE SEDIMENTATION RATE 25 mm/hr (0-30)
[2020-11-23 08:43] LABS: BASO % 0.5 % (0-2.0); EOS % 0.1 % (0-4.5); HEMATOCRIT 35.2 % (32.4-45.2); HEMOGLOBIN 11.9 GM/dL (10.7-15.3); LYMPH % 21.7 % (8-40); MCH 30.7 pg (25.7-33.7); MCHC 33.8 g/dl (32.0-36.0); MEAN CELL VOLUME 90.8 fl (80-96); MEAN PLT VOLUME 8.9 fl (7.5-11.1); MONO % 14.9 % (3.8-10.2); NEUT % 62.8 % (42.8-82.8); PLATELET COUNT 397 K/MM3 (134-434); RBC 3.87 M/mm3 (3.60-5.2); WHITE BLOOD COUNT 10.3 K/mm3 (4.0-10.0)
[2020-11-23 09:42] LABS: POTASSIUM 4.1 mmol/L (3.5-5.1)
[2020-11-23 10:12] LABS: TOT PROT 5.8 g/dl (6.4-8.2)
[2020-11-23] MEDS: CHOLECALCIFEROL (VIT D3) 1,000 UNIT (25 MCG) TABLET PO SCH (10:19)
[2020-11-23] MEDS: ASPIRIN COATED 81 MG TABLET.EC PO SCH (10:19)
[2020-11-23] MEDS: ASCORBIC ACID 250 MG TABLET (FP) PO SCH ×2 (10:19→21:39)
[2020-11-23] MEDS: ZINC SULFATE 220 MG CAPSULE (FP) PO SCH (10:19)
[2020-11-23 10:20] LABS: CALCIUM 8.5 mg/dL (8.5-10.1); CREATININE 0.6 mg/dL (0.55-1.3)
[2020-11-23] MEDS: LOSARTAN POTASSIUM 50 MG TABLET PO SCH (10:20)
[2020-11-23] MEDS: ENOXAPARIN NA (PORCINE) 40 MG/0.4 ML DISP.SYRIN SQ SCH (10:20)
[2020-11-23] MEDS: DEXAMETHASONE SOD PHOSPHATE 4 MG/1 ML VIAL IVPUSH SCH (10:20)
[2020-11-23] MEDS: FAMOTIDINE 20 MG TABLET PO SCH (10:20)
[2020-11-23 10:21] LABS: ALBUMIN 2.6 g/dl (3.4-5.0); BLOOD UREA NITROGEN 24.9 mg/dL (7-18); PHOSPHOROUS 2.9 mg/dL (2.5-4.9)
[2020-11-23] MEDS: prednisoLONE ACETATE 1% OPHTH SUSP 5 ML BOTTLE OD SCH (10:21)
[2020-11-23 10:22] LABS: BILIRUBIN,TOTAL 0.5 mg/dL (0.2-1); MAGNESIUM 1.9 mg/dL (1.8-2.4)
[2020-11-23 11:24] LABS: ERYTHROCYTE SEDIMENTATION RATE 22 mm/hr (0-30)
[2020-11-23] MEDS: SOLIFENACIN SUCCINATE 5 MG TAB PO SCH (14:26)
[2020-11-23] MEDS: REMDESIVIR 100 MG in SODIUM CHLORIDE 230 ML IVPB SCH (14:32)
[2020-11-23] MEDS: metoPROLOL SUCCINATE 25 MG TAB.SR.24H (FP) PO SCH (21:42)
[2020-11-24] MEDS: ASPIRIN COATED 81 MG TABLET.EC PO SCH (10:27)
[2020-11-24] MEDS: ZINC SULFATE 220 MG CAPSULE (FP) PO SCH (10:27)
[2020-11-24] MEDS: ASCORBIC ACID 250 MG TABLET (FP) PO SCH ×2 (10:27→21:27)
[2020-11-24] MEDS: DEXAMETHASONE SOD PHOSPHATE 4 MG/1 ML VIAL IVPUSH SCH (10:27)
[2020-11-24] MEDS: LOSARTAN POTASSIUM 50 MG TABLET PO SCH (10:27)
[2020-11-24] MEDS: CHOLECALCIFEROL (VIT D3) 1,000 UNIT (25 MCG) TABLET PO SCH (10:27)
[2020-11-24] MEDS: FAMOTIDINE 20 MG TABLET PO SCH (10:27)
[2020-11-24] MEDS: ENOXAPARIN NA (PORCINE) 40 MG/0.4 ML DISP.SYRIN SQ SCH (10:27)
[2020-11-24] MEDS: prednisoLONE ACETATE 1% OPHTH SUSP 5 ML BOTTLE OD SCH (10:27)
[2020-11-24 13:37] LABS: BASO % 0.3 % (0-2.0); EOS % 0.2 % (0-4.5); HEMATOCRIT 37.4 % (32.4-45.2); HEMOGLOBIN 12.4 GM/dL (10.7-15.3); LYMPH % 14.1 % (8-40); MCH 29.9 pg (25.7-33.7); MCHC 33.1 g/dl (32.0-36.0); MEAN CELL VOLUME 90.3 fl (80-96); MEAN PLT VOLUME 8.9 fl (7.5-11.1); MONO % 12.1 % (3.8-10.2); NEUT % 73.3 % (42.8-82.8); PLATELET COUNT 459 K/MM3 (134-434); RBC 4.15 M/mm3 (3.60-5.2); WHITE BLOOD COUNT 13.6 K/mm3 (4.0-10.0)
[2020-11-24 13:48] LABS: POTASSIUM 4.5 mmol/L (3.5-5.1)
[2020-11-24 13:51] LABS: CALCIUM 8.4 mg/dL (8.5-10.1)
[2020-11-24 13:52] LABS: ALBUMIN 2.7 g/dl (3.4-5.0); MAGNESIUM 1.9 mg/dL (1.8-2.4)
[2020-11-24 13:54] LABS: PHOSPHOROUS 2.8 mg/dL (2.5-4.9)
[2020-11-24 13:55] LABS: CREATININE 0.8 mg/dL (0.55-1.3)
[2020-11-24 13:56] LABS: BILIRUBIN,TOTAL 0.6 mg/dL (0.2-1); TOT PROT 5.8 g/dl (6.4-8.2)
[2020-11-24] MEDS: REMDESIVIR 100 MG in SODIUM CHLORIDE 230 ML IVPB SCH (14:16)
[2020-11-24 14:21] LABS: ERYTHROCYTE SEDIMENTATION RATE 18 mm/hr (0-30)
[2020-11-24 15:04] LABS: ANISOCYTOSIS 1+; MACROCYTOSIS 0; OVALOCYTE 1+; PLATELET ESTIMATE NORMAL
[2020-11-24] MEDS: SOLIFENACIN SUCCINATE 5 MG TAB PO SCH (17:40)
[2020-11-24] MEDS: metoPROLOL SUCCINATE 25 MG TAB.SR.24H (FP) PO SCH (21:27)
[2020-11-25] MEDS: ZINC SULFATE 220 MG CAPSULE (FP) PO SCH (10:36)
[2020-11-25] MEDS: CHOLECALCIFEROL (VIT D3) 1,000 UNIT (25 MCG) TABLET PO SCH (10:36)
[2020-11-25] MEDS: ASCORBIC ACID 250 MG TABLET (FP) PO SCH (10:36)
[2020-11-25] MEDS: ASPIRIN COATED 81 MG TABLET.EC PO SCH (10:36)
[2020-11-25] MEDS: LOSARTAN POTASSIUM 50 MG TABLET PO SCH (10:37)
[2020-11-25] MEDS: FAMOTIDINE 20 MG TABLET PO SCH (10:38)
[2020-11-25] MEDS: ENOXAPARIN NA (PORCINE) 40 MG/0.4 ML DISP.SYRIN SQ SCH (10:38)
[2020-11-25] MEDS: prednisoLONE ACETATE 1% OPHTH SUSP 5 ML BOTTLE OD SCH (10:40)
[2020-11-25 13:34] VITALS: TEMP 98.2
[2020-11-25] MEDS: SOLIFENACIN SUCCINATE 5 MG TAB PO SCH (14:23)
[2020-11-25 16:06] VITALS: BP 116/61; PULSE 71
== END 2020-11-25 18:53 | disposition home or self-care (01) | DRG 177 ==
LOC: FER 10:11 → J5WEST-2 11-20 00:15
PROVIDERS: ADMIT Internal Medicine
PROC: XW13325 Transfusion of Convalescent Plasma (Nonautologous) into Peripheral Vein, Percutaneous Approach, New Technology Group 5 (ICD-10-PCS; principal; 2020-11-20)
PROC: XW033E5 Introduction of Remdesivir Anti-infective into Peripheral Vein, Percutaneous Approach, New Technology Group 5 (ICD-10-PCS; 2020-11-21)
DX: U07.1 COVID-19 (principal); J12.82 Pneumonia due to coronavirus disease 2019; J96.01 Acute respiratory failure with hypoxia; A08.39 Other viral enteritis; I42.8 Other cardiomyopathies; I25.10 Atherosclerotic heart disease of native coronary artery without angina pectoris; I10 Essential (primary) hypertension; E78.5 Hyperlipidemia, unspecified; I44.1 Atrioventricular block, second degree; E78.00 Pure hypercholesterolemia, unspecified; Z95.0 Presence of cardiac pacemaker; R19.7 Diarrhea, unspecified; I11.9 Hypertensive heart disease without heart failure
CPT/HCPCS: 36415; 36430; 71045-TC-FY; 80053; 81003; 81015; 82550; 82728; 83615; 83735; 83880; 84100; 84443; 84484; 85025; 85379; 85610; 85651; 85730; 86140; 86850; 86900; 86901; 87040; 87086; 87804; 87899; 93005; 94761; 97116-GP; 97162-GP; 99285-25; C9399; C9803; J0131; P9017; U0003